=== PATIENT | female | born 1975 | race Caucasian/White ===

== ENCOUNTER 2020-03-29 10:00 | Outpatient (CLI) | payer SELFPAY ==
--- NOTE | 2020-03-29 10:06 | XR_ITS ---
WS: [id number] PROCEDURE: XR chest 2V* [id number] CLINICAL INFORMATION: DYSPNEA/COUGH COMPARISON: None. FINDINGS: Heart: Normal cardiac silhouette. Lungs: Lungs are clear. No consolidation or pleural fluid. Bones: Normal visualized bony structures. XR/XR chest 2V* [id number] IMPRESSION: Normal chest
== END 2020-03-29 10:01 | disposition home or self-care (01) ==
LOC: RADWPI 10:03
PROVIDERS: Family Provider Nurse Practitioner Family; PCP Nurse Practitioner Family; Visit Provider Nurse Practitioner Family
DX: R06.00 Dyspnea, unspecified (principal); R05 Cough
CPT/HCPCS: 71046

== ENCOUNTER 2020-04-03 15:21 | Emergency (ER) | payer SELFPAY ==
[2020-04-03 15:29] VITALS: BP 141/76; PULSE 110; RESP 14; TEMP 36.8; O2SAT 96; BMI 38.4
--- NOTE | 2020-04-03 15:45 | ECG_ITS ---
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 Measurements Intervals [place] Rate: 111 P: 53 MA: 150 QRS: 29 QRSD: 83 T: 44 QT: 305 QTc: 416 Interpretive Statements SINUS TACHYCARDIA LOW QRS VOLTAGE IN PRECORDIAL LEADS [QRS DEFLECTION < 1.0 mV IN CHEST LEADS] SEPTAL MYOCARDIAL INFARCTION [40+ ms Q WAVE IN V1/V2], PROBABLY OLD No previous ECG available for comparison Electronically Signed On 04-03-2020 20:43:54 CDT by Preeti Leigh M.D. [id number]
--- NOTE | 2020-04-03 15:47 | ED_ITS ---
HPI - Chest Pain General: Chief Complaint: Chest Pain Stated Complaint: cp,sob Time Seen by Provider: 04/03/20 15:45 History of Present Illness: HPI narrative: pt has no history of blood clots or DVT's. Patient describes having some underlying shortness of breath and dry cough due to her cigarette smoking. Patient's primary care physician is working on getting her set up with a wastewater engineer. MD complaint: chest pain and chest heaviness Pertinent past history: other (Past medical history of diabetes and hypertension. Patient is also 1/2 pack a day tobacco smoker.) Onset (ago): week(s) (Patient started getting these episodes approximately 2 weeks ago. She gets multiple episodes a day and they usually occur when she is up and active and improve when she stops and rests.) Timing of current episode: episodic (Episode occurred just prior to arrival to the ED and since getting to the ED it is subsiding) Prior episodes: Yes (Patient states that in the last 2 weeks she has had multiple episodes of chest pain, heaviness and shortness of breath that last for approximately 20 minutes. They are brought on when patient is up and active and rest helps episodes resolved.) Onset: during exertion (Occurs when patient is up and active.) Pain location: substernal Pain radiation: right shoulder Severity: mild Pain scale (0-10): 3 (Current pain is a 3 out of 10. She stated that this is not the worst episode of chest pain she has had in the past 2 weeks. She states she has had worse chest pain during other episodes previously.) Quality: aching and heaviness Relieving factors: rest Exacerbating factors: exertion and movement Associated symptoms: Reports dyspnea, palpitations and other (Patient says she gets lightheaded during episodes.); Deny abdominal pain, fever(s), nausea or vomiting Treatment prior to arrival: none Review of Systems Const: Denies: fever(s), chills or fatigue Eyes: Denies: change in vision or eye discomfort ENMT: Denies: throat pain, odynophagia, nasal discharge or nasal congestion Card: Reports: chest pain, palpitations and lightheadedness; Denies: edema, swelling of feet/ankles, dyspnea on exertion or orthopnea Resp: Reports: dyspnea; Denies: productive cough or non-productive cough GI: Denies: abdominal pain, nausea, vomiting, diarrhea, constipation or hematochezia : Denies: flank pain, dysuria or hematuria Musc: Denies: neck pain, back pain or extremity swelling Skin/Breast: Denies: rash or new lesions Neuro: Denies: headache(s), numbness in extremities or weakness in extremities Physical Exam Const: COMMON NORMALS: no acute distress, patient oriented x3 and alert GENERAL APPEARANCE: cooperative and comfortable HENMT: COMMON NORMALS: normocephalic HEAD & SCALP: normocephalic MOUTH: Normal oral and palatal mucosa present THROAT: posterior oropharynx normal and uvula midline Eye: COMMON NORMALS: Equal, round and reactive pupils present PUPIL: Yes Equal, round and reactive pupils present Neck/C-Spine: COMMON NORMALS: supple GENERAL: Yes normal visual inspection Resp: COMMON NORMALS: normal respiratory effort, No retractions, No use of accessory muscles and clear to auscultation bilaterally AUSCULTATION: clear to auscultation bilaterally Cardio: COMMON NORMALS: regular rhythm, S1 normal heart sound present, No gallops present (Cardio), No clicks present (Cardio), No murmurs present (Cardio) and Peripheral pulses 2+ throughout RATE: tachycardic RHYTHM: regular rhythm HEART SOUNDS: S1 normal heart sound present and Murmur heart sound present systolic Location: left sternal border Intensity: III/ Characteristics: blowing Timing: early PERIPHERAL PULSES: Peripheral pulses 2+ throughout GI: COMMON NORMALS: Normal to inspection, nondistended, normoactive bowel sounds present, Soft to palpation, non-tender and no masses PALPATION: Yes Soft to palpation : COMMON NORMALS: Yes no CVA tenderness BLADDER/KIDNEY EXAM: Yes no CVA tenderness Back/Pelvis: COMMON NORMALS: no CVA tenderness Extremity: COMMON NORMALS: normal to inspection and no pedal edema Neuro: COMMON NORMALS: patient oriented x3 and moves all extremities SENSORIUM/ORIENTATION: Yes alert Skin: COMMON NORMALS: no rashes or lesions noted GENERAL SKIN EXAM: no rashes or lesions noted and dry skin Course ED course: Heart score-4 I talked with patient about her getting an outpatient stress test and told her I will file the paperwork to get that ordered and they should be contacting her in the next several days to get the appointment set up. While I was in the room with patient she was having no chest pain or shortness of breath symptoms. Her heart rate was 100 bpm. Vital Signs: Vital signs: Vital Signs Temperature 98.2 F 04/03/20 15:29 Pulse Rate 104 H 04/03/20 17:37 Respiratory Rate 17 04/03/20 17:37 Blood Pressure 115/69 04/03/20 17:37 Pulse Oximetry 96 04/03/20 17:37 MDM - Chest Pain MDM Narrative: Medical decision making narrative: Patient is a 44-year-old female comes to the ED with chest pain for the last 2 weeks. Past medical history of hypertension, diabetes and is a half a pack a day smoker. Symptoms occurred upon exertion and resolved with rest. Patient's heart score was 4. EKG showed sinus tachycardia with no ST segment elevations or depression seen. Troponin negative. Chest x-ray showed no acute findings. Patient's symptoms had completely resolved while here in the ED. I discussed with patient her risk factors and gave her the option to stay for further testing or to discharge home and I will set up an outpatient stress test. Patient decided she would like to be discharged and I filled out the appropriate paperwork to get stress test set up with cardiology. Patient was told that if she starts having any reoccurring symptoms to come back to the ED for reevaluation. Patient understood and agreed with plan. Lab Data: Attestation: I reviewed the patient's lab results. Labs: Lab Results 04/03/20 04/03/20 04/03/20 Range/Units 15:55 15:55 15:55 WBC 15.4 H (4.0-10.0) 10^3/ uL RBC 5.26 (4.1-5.3) 10^6/u L Hgb 15.1 (11.5-15.3) g/dL Hct 46.5 (37.0-47.0) % MCV 88.4 (81-99) fL MCH 28.7 (28.0-34.0) pg MCHC 32.5 (30.0-36.0) g/dL RDW 13.6 (12.1-15.1) % Plt Count 355 (130-400) 10^3/c mm MPV 10.1 (7.4-10.4) fL Neut % (Auto) 61.4 % Lymph % (Auto) 27.6 % Dukes % (Auto) 7.5 % Eos % (Auto) 2.7 % Baso % (Auto) 0.5 % Neut # (Auto) 9.45 H (1.8-7.7) 10^3/u L Lymph # (Auto) 4.3 (0.8-4.8) 10^3/u L Dukes # (Auto) 1.2 H (0.2-0.9) 10^3/u L Eos # (Auto) 0.4 (0.0-0.8) 10^3/u L Baso # (Auto) 0.1 (0.0-0.1) 10^3/u L Nucleated RBC % (a uto) 0 % Nucleated RBCs # 0.0 /100WBC Sodium Cancelled Potassium Cancelled Chloride Cancelled Carbon Dioxide Cancelled Anion Gap Cancelled BUN Cancelled Creatinine Cancelled GFR Calculation Cancelled Glucose Cancelled Calculated Osmolal ity Cancelled Calcium Cancelled Total Bilirubin Cancelled AST Cancelled ALT Cancelled Alkaline Phosphata se Cancelled Troponin T Baselin e Cancelled Total Protein Cancelled Albumin Cancelled Globulin Cancelled HCG, Qual (Negative) Urine Color (Yellow) Urine Appearance (CLEAR) Urine pH (5-7) Ur Specific Gravit y (1.005-1.030) Urine Protein (Negative) Urine Glucose (UA) (Normal) Urine Ketones (Negative) Urine Blood (Negative) Urine Nitrate (Negative) Urine Bilirubin (NEGATIVE) Urine Urobilinogen (Negative) mg/dL Ur Leukocyte Ashley ase (Negative) Urine RBC (0-2) /hpf Urine WBC (0-5) /hpf Ur Squamous Epith Cells (0-5) Amorphous Sediment Urine Bacteria (NONE) Urine Mucus 04/03/20 04/03/20 04/03/20 Range/Units 15:55 16:17 16:30 WBC (4.0-10.0) 10^3/ uL RBC (4.1-5.3) 10^6/u L Hgb (11.5-15.3) g/dL Hct (37.0-47.0) % MCV (81-99) fL MCH (28.0-34.0) pg MCHC (30.0-36.0) g/dL RDW (12.1-15.1) % Plt Count (130-400) 10^3/c mm MPV (7.4-10.4) fL Neut % (Auto) % Lymph % (Auto) % Dukes % (Auto) % Eos % (Auto) % Baso % (Auto) % Neut # (Auto) (1.8-7.7) 10^3/u L Lymph # (Auto) (0.8-4.8) 10^3/u L Dukes # (Auto) (0.2-0.9) 10^3/u L Eos # (Auto) (0.0-0.8) 10^3/u L Baso # (Auto) (0.0-0.1) 10^3/u L Nucleated RBC % (a uto) % Nucleated RBCs # /100WBC Sodium 135 L Potassium 5.0 Chloride 102 Carbon Dioxide 19 L Anion Gap 19.0 BUN 16 Creatinine 0.7 GFR Calculation 90.5 Glucose 168 H Calculated Osmolal ity 280 L Calcium 10.0 Total Bilirubin 0.2 AST 13 ALT 17 Alkaline Phosphata se 44 Troponin T Baselin e Total Protein 7.6 Albumin 4.4 Globulin 3.2 HCG, Qual Negative (Negative) Urine Color Yellow (Yellow) Urine Appearance Hazy A (CLEAR) Urine pH 6 (5-7) Ur Specific Gravit y 1.015 (1.005-1.030) Urine Protein Neg (Negative) Urine Glucose (UA) Norm (Normal) Urine Ketones Negative (Negative) Urine Blood Neg (Negative) Urine Nitrate Negative (Negative) Urine Bilirubin Neg (NEGATIVE) Urine Urobilinogen Norm (Negative) mg/dL Ur Leukocyte Ashley ase Negative (Negative) Urine RBC None (0-2) /hpf Urine WBC None (0-5) /hpf Ur Squamous Epith Cells 0-4 H (0-5) Amorphous Sediment Not Reportable Urine Bacteria Trace (NONE) Urine Mucus Trace 04/03/20 Range/Units 16:30 WBC (4.0-10.0) 10^3/ uL RBC (4.1-5.3) 10^6/u L Hgb (11.5-15.3) g/dL Hct (37.0-47.0) % MCV (81-99) fL MCH (28.0-34.0) pg MCHC (30.0-36.0) g/dL RDW (12.1-15.1) % Plt Count (130-400) 10^3/c mm MPV (7.4-10.4) fL Neut % (Auto) % Lymph % (Auto) % Dukes % (Auto) % Eos % (Auto) % Baso % (Auto) % Neut # (Auto) (1.8-7.7) 10^3/u L Lymph # (Auto) (0.8-4.8) 10^3/u L Dukes # (Auto) (0.2-0.9) 10^3/u L Eos # (Auto) (0.0-0.8) 10^3/u L Baso # (Auto) (0.0-0.1) 10^3/u L Nucleated RBC % (a uto) % Nucleated RBCs # /100WBC Sodium Potassium Chloride Carbon Dioxide Anion Gap BUN Creatinine GFR Calculation Glucose Calculated Osmolal ity Calcium Total Bilirubin AST ALT Alkaline Phosphata se Troponin T Baselin e 6 Total Protein Albumin Globulin HCG, Qual (Negative) Urine Color (Yellow) Urine Appearance (CLEAR) Urine pH (5-7) Ur Specific Gravit y (1.005-1.030) Urine Protein (Negative) Urine Glucose (UA) (Normal) Urine Ketones (Negative) Urine Blood (Negative) Urine Nitrate (Negative) Urine Bilirubin (NEGATIVE) Urine Urobilinogen (Negative) mg/dL Ur Leukocyte Ashley ase (Negative) Urine RBC (0-2) /hpf Urine WBC (0-5) /hpf Ur Squamous Epith Cells (0-5) Amorphous Sediment Urine Bacteria (NONE) Urine Mucus Imaging Data^: CXR: Attestation: I personally reviewed and interpreted this imaging study as follows: Radiologist's impression: [address] [address] XRay Report Signed Patient: Varun Villatoro Unit #: [id number] : 1975 Age/Sex: 44 / F ADM Date: 04/03/20 Loc: ER Room/Bed: Attending Dr: Ordering Provider/Ordering MD: Andrews Chavez Date of Service: 04/03/20 Procedure(s): XR chest 1V portable [id number] Accession Number(s): [id number] Report Number: [id number] PROCEDURE INFORMATION: Exam: XR Chest, 1 View Exam date and time: 04/03/2020 3:47 PM Age: 44 years old Clinical indication: Type not specified; Patient HX: C/O chest pain; Chest heaviness. Dyspnea; Additional info: Cp TECHNIQUE: Imaging protocol: XR of the chest Views: 1 view. COMPARISON: CR XR chest 2V* [id number] 03/29/2020 10:46 AM FINDINGS: Lungs: There is unchanged hyperinflation and multiple tiny calcified granulomas. No consolidation. The vascularity is within normal limits. Pleural space: Unremarkable. No pleural effusion. No pneumothorax. Heart/Mediastinum: Unremarkable. No cardiomegaly. Bones/joints: No acute abnormality. XR/XR chest 1V portable [id number] IMPRESSION: No acute findings. Dictated By: Shelly Malcolm Signed By: Shelly Malcolm Signed Date/Time: 04/03/201626 DD/ 24 EKG Data^: EKG 1: Attestation: I personally reviewed and interpreted this EKG as follows: EKG interpretation date: 04/03/20 Interpretation: Sinus tachycardia, 111 bpm, no ST segment elevation or depression seen. P waves present. Discharge Plan Discharge Patient Disposition: Home Clinical Impression: Chest pain of unknown etiology Condition: Stable Prescriptions: No Action amlodipine 5 mg Tablet 5 mg PO DAILY RF: 0 lisinopril-hydrochlorothiazide 20-25 mg Tablet 1 tab PO DAILY RF: 0 metformin 1,000 mg Tablet 1,000 mg PO BID RF: 0 fenofibrate nanocrystallized 145 mg Tablet 145 mg PO DAILY RF: 0 Aleve 220 mg Tablet 220 mg PO BID PRN (Reason: Pain) RF: 0 Fish Oil 100-160-1,000 mg Capsule 1 cap PO DAILY RF: 0 Discharge Orders: Discharge Order (Routine); Ordered 04/03/20 Ordered By: Andrews Chavez Referrals: ISSA REGALADO FNP [Primary Care Provider] - Discharge Diet: Regular Discharge Activity: Increase activity as tolerated Patient Instructions: Chest Pain (ED) Activity Restrictions/Additional Instructions: Follow-up with medical provider as directed in 7 days. [facility] should be contacting you in the next several days to set up your cardiac stress test. Continue taking all home medications as prescribed. Return to the ER or your medical provider if condition worsens or any reoccurring chest pains. Please read and understand discharge instructions. If any questions, please ask. Discharge Date/Time: 04/03/20 17:36 Coding Level of Care Code ED Three Dimensional Map Modeler for Chg Fwd Exam Comprehensive
[2020-04-03 16:03] VITALS: BP 129/79; PULSE 112; RESP 13; O2SAT 97
[2020-04-03 16:03] LABS: Basophils # 0.1 10^3/uL (0.0-0.1); Basophils % 0.5 %; Eosinophils # 0.4 10^3/uL (0.0-0.8); Eosinophils % 2.7 %; Hematocrit 46.5 % (37.0-47.0); Hemoglobin 15.1 g/dL (11.5-15.3); Lymphocytes # 4.3 10^3/uL (0.8-4.8); Lymphocytes % 27.6 %; Mean Corpuscular HGB Conc 32.5 g/dL (30.0-36.0); Mean Corpuscular Hemoglobin 28.7 pg (28.0-34.0); Mean Corpuscular Volume 88.4 fL (81-99); Mean Platelet Volume 10.1 fL (7.4-10.4); Monocytes # 1.2 10^3/uL (0.2-0.9); Monocytes % 7.5 %; Neutrophils # 9.45 10^3/uL (1.8-7.7); Neutrophils % 61.4 %; Nucleated Red Blood Cells % 0 %; Platelet Count 355 10^3/cmm (130-400); Red Blood Count 5.26 10^6/uL (4.1-5.3); Red Cell Distribution Width 13.6 % (12.1-15.1); White Blood Count 15.4 10^3/uL (4.0-10.0)
[2020-04-03] MEDS: aspirin 81 mg Chew Tablet 324 MG PO (16:08)
[2020-04-03 16:19] LABS: HCG, Serum Qual Negative (Negative)
[2020-04-03 16:44] LABS: Add Urine Microscopic? YES; Bilirubin Urine Neg (NEGATIVE); Blood Urine Neg (Negative); Glucose Urine UA Norm (Normal); Ketones Urine Negative (Negative); Leukocyte Esterase Urine Negative (Negative); Nitrate Urine Negative (Negative); Protein Urine Neg (Negative); Specific Gravity, Urine 1.015 (1.005-1.030); Urine Appearance Hazy (CLEAR); Urine Color Yellow (Yellow); Urobilinogen Urine Norm (Negative); pH Urine 6 (5-7)
[2020-04-03 16:50] LABS: Add Urine Culture? No; Bacteria Urine TRACE; Mucus Urine TRACE; Squamous Epithelial Cell Urine 0-4 (0-5)
[2020-04-03 16:59] LABS: Alanine Aminotransferase 17 U/L (0-33); Albumin Level 4.4 g/dL (3.5-5.2); Alkaline Phosphatase 44 IU/L (35-105); Aspartate Amino Transferase 13 U/L (0-32); Blood Urea Nitrogen 16 mg/dL (6-20); Carbon Dioxide 19 mmol/L (22-29); Chloride 102 mmol/L (98-107); Globulin 3.2 g/dL (1.3-4.6); Glomerular Filtration Rate 90.5 mL/min (90-130); Glucose 168 mg/dL (65-115); Osmolality Calculated 280 mOsm/kg (285-295); Sodium 135 mmol/L (136-145); Total Bilirubin 0.2 mg/dL (0.15-1.2); Total Protein 7.6 g/dL (6.6-8.7)
[2020-04-03 17:00] LABS: Troponin(5th) Baseline 6 ng/L (0-10)
[2020-04-03 17:37] VITALS: BP 115/69; PULSE 104; RESP 17; O2SAT 96
--- NOTE | 2020-04-04 16:08 | PC.SOCIAL ---
Faxed order to [facility] for outpatient stress test with confirmation fax went through successfully. CM to follow up and see if scheduled.
--- NOTE | 2020-04-05 11:17 | PC.SOCIAL ---
Followed up with Rosanne at [facility] and they did receive the order for stress test. No further needs voiced.
--- NOTE | 2020-04-13 08:30 | DCPLANNER ---
Patient has a stress test scheduled for Thursday, April 14, 2020 at 10:00 for an out patient stress test. Centralized scheduling will call patient with appointment information.
--- NOTE | 2020-04-19 14:45 | DCPLANNER ---
Patient did attend appointment scheduled for 04.16.20 for a stress test.
== END 2020-04-03 17:36 | disposition home or self-care (01) ==
PROVIDERS: Emergency Provider Physician Assistant; PCP Nurse Practitioner Family
DX: R07.9 Chest pain, unspecified (principal)
CPT/HCPCS: 12345; 71045; 80053; 81001; 81003; 84484; 84703; 85025; 87040; 93005; 99283; 99284

== ENCOUNTER 2020-04-16 08:28 | Outpatient (CLI) | payer SELFPAY ==
[2020-04-16 09:10] VITALS: BMI 43.4
--- NOTE | 2020-04-16 09:10 | ECG_ITS ---
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 Interpretive Statements NAME OF STUDY: LEXISCAN SESTAMIBI STRESS TEST INDICATION: Chest Pain PROCEDURE: At the baseline, the EKG revealed sinus rhythm with a poor R wave progression. The baseline blood pressure was 127/67 mm Hg with a heart rate of 87 beats/min. Lexiscan was infused over a period of 20 seconds. A total of 0.4 milligrams of Lexiscan was infused. The stress phase was continued for a total of 5 minutes. Heart rate at the end of the stress phase was 104 with a blood pressure 130/67. The EKG at the peak infusion revealed no significant changes. Sestamibi was injected 20 seconds after the Lexiscan infusion. Blood pressure at the end of the recovery phase was 114/59 with a heart rate of 99 per minute. CONCLUSION: 1. No significant EKG changes with the LexiScan infusion 2. No LexiScan induced chest pain or cardiac arrhythmia 3. Normal blood pressure and heart rate response 4. Sestamibi/sestamibi perfusion scan pending; see separate report. Electronically Signed On 04-16-2020 13:10:15 CDT by Raysa Boyd M.D. [id number]
--- NOTE | 2020-04-16 09:11 | NMCV_ITS ---
NM jesús perf SPECT r/s* [id number] Varun Villatoro Age: 44 Gender: F : 1975 Exam Date: 04/16/2020 09:26 Ordering Phys: Andrews Chavez Technologist: KUNAL Caraballo Exam Location: [facility] Indications: CHEST PAIN STRESS TEST Please see separate stress test report in [facility] for full findings IMAGE PROTOCOL Rest/Stress 1 Lexiscan Day Radiopharmaceutical Dose (mCi) Administration Site Administered by Rest: Tc-99m 60 IV KUNAL Mota Sestamibi Stress:Tc-99m 30 IV KUNAL Mota Sestamibi Rest: 16-Apr-2020 60 Discovery 630 Stress: 16-Apr-2020 30 Discovery 630 0.4mg Lexiscan. Images obtained in supine and prone position. SPECT RESULTS Technical Quality: Good Raw Data Analysis: Breast attenuation Image Corrections: No attenuation or motion correction applied Summed Stress Score: 3 Summed Rest Score: 0 Summed Difference Score: 3 PERFUSION FINDINGS Small area of mild reversibility noted in basal inferolateral wall suggestive of artifact. FUNCTIONAL RESULTS (calculated via Gated SPECT) Stress Image LV EF (%): 72 Stress EDV (mL):60 TID: 1.3 Stress ESV (mL):17 Rest Image LV EF (%): 72 FUNCTIONAL FINDINGS: There is normal left ventricular systolic function. IMPRESSIONS Myocardial perfusion imaging is not suggestive of obstructive coronary artery disease.TID ratio is elevated 1.3 which could be secondary left-ventricular hypertrophy/subendocardial ischemia in the absence of other parameters. EKG segment will be documented separately. Preeti Leigh MD (Electronically Signed) Final Date: 16 April 2020 16:58 S
--- NOTE | 2020-04-16 10:25 | SUR.PREOP ---
Patient reports no pain or discomfort prior to the start of the procedure.
[2020-04-16] MEDS: regadenoson 0.4 Mg/5 ml Syringe IVP (10:27)
[2020-04-16 10:52] VITALS: BP 129/62; PULSE 99
== END 2020-04-16 08:29 | disposition home or self-care (01) ==
LOC: RAD 08:35 → CDL 08:57
PROVIDERS: PCP Nurse Practitioner Family; Visit Provider Physician Assistant
DX: R07.9 Chest pain, unspecified (principal); I25.9 Chronic ischemic heart disease, unspecified
CPT/HCPCS: 78452; 93017; A9500; J2785

== ENCOUNTER 2022-01-27 11:16 | Outpatient (CLI) | payer SELFPAY ==
--- NOTE | 2022-01-27 11:33 | XR_ITS ---
WS: [id number] Exam: XR knee RT 4V [id number] Date/Time of Exam: 01/27/2022 11:33 AM Reason For Exam: R KNEE PAIN No fracture or dislocation noted. Articular relationships are intact. No joint effusion. XR/XR knee RT 4V [id number] Impression: Normal right knee Kellgren-Adi Classification: 0
--- NOTE | 2022-01-27 11:33 | XR_ITS ---
WS: [id number] Exam: XR knee LT 4V [id number] Date/Time of Exam: 01/27/2022 11:33 AM Reason For Exam: L KNEE PAIN No fracture or dislocation noted. Articular relationships are intact. No joint effusion. XR/XR knee LT 4V [id number] Impression: Normal left knee Kellgren-Adi Classification: 0
== END 2022-01-27 11:17 | disposition home or self-care (01) ==
PROVIDERS: PCP Nurse Practitioner Family; Visit Provider Nurse Practitioner Family
DX: M25.562 Pain in left knee (principal); M25.561 Pain in right knee
CPT/HCPCS: 73564

== ENCOUNTER 2022-09-22 15:04 | Observation (INO) | payer MEDICAID, SELFPAY ==
[2022-09-22 15:06] VITALS: BP 158/95; PULSE 89; RESP 18; TEMP 36.4; O2SAT 99
--- NOTE | 2022-09-22 15:21 | ECG_ITS ---
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 Measurements Intervals [place] Rate: 85 P: 49 [place]: 154 QRS: -9 QRSD: 100 T: 57 QT: 375 QTc: 447 Interpretive Statements SINUS RHYTHM LOW QRS VOLTAGE IN PRECORDIAL LEADS [QRS DEFLECTION < 1.0 mV IN CHEST LEADS] Compared to ECG 04/03/2020 15:39:20 Sinus tachycardia no longer present Myocardial infarct finding no longer present Electronically Signed On 09-22-2022 18:42:02 CHAIRMAN & CHIEF EXECUTIVE OFFICER by Frederick Sharma M.D. [id number]
--- NOTE | 2022-09-22 15:23 | XR_ITS ---
WS: [id number] Portable AP upright chest, 09/22/2022 Clinical Data: dyspnea/cough Comparison: Portable chest, 04/03/2020 Findings: No nodules, masses or effusions are seen. The heart is normal. The pulmonary vascularity is not increased. No pneumonia or pneumothorax is seen. XR/XR chest 1V portable [id number] Impression: Negative chest.
[2022-09-22 15:42] LABS: Basophils # 0.1 10^3/uL (0.0-0.1); Basophils % 0.9 %; Eosinophils # 0.4 10^3/uL (0.0-0.8); Eosinophils % 3.2 %; Hemoglobin 16.6 g/dL (11.5-15.3); Lymphocytes # 4.7 10^3/uL (0.8-4.8); Lymphocytes % 35.2 %; Mean Corpuscular HGB Conc 33.2 g/dL (30.0-36.0); Mean Corpuscular Volume 87.3 fl (81-99); Mean Platelet Volume 8.9 fL (7.4-10.4); Monocytes # 1.1 10^3/uL (0.2-0.9); Monocytes % 8.5 %; Neutrophils # 6.94 10^3/uL (1.8-7.7); Nucleated Red Blood Cells % 0 %; Platelet Count 421 10^3/cmm (130-400); Red Blood Count 5.73 10^6/uL (4.1-5.3); Red Cell Distribution Width 13.8 % (12.1-15.1); White Blood Count 13.4 10^3/uL (4.0-10.0)
[2022-09-22] MEDS: aspirin 81 mg Chew Tablet 324 MG PO (16:01)
[2022-09-22 16:05] LABS: Troponin(5th) Baseline 18 ng/L (0-10)
[2022-09-22 16:06] LABS: Alanine Aminotransferase 27 U/L (0-33); Albumin Level 4.6 g/dL (3.5-5.2); Alkaline Phosphatase 55 U/L (35-105); Anion Gap 19.8 (5-19); Aspartate Amino Transferase 20 U/L (0-32); Blood Urea Nitrogen 17 mg/dL (6-20); Calcium 9.6 mg/dL (8.5-10.5); Carbon Dioxide 21 mmol/L (22-29); Chloride 102 mmol/L (98-107); Globulin 2.8 g/dL (1.3-4.6); Glomerular Filtration Rate 131.7 mL/min (90-130); Glucose 159 mg/dL (65-115); Osmolality Calculated 293 mOsm/kg (285-295); Potassium 3.8 mmol/L (3.5-5.1); Sodium 139 mmol/L (136-145); Total Bilirubin 0.2 mg/dL (0.15-1.2); Total Protein 7.4 g/dL (6.6-8.7)
--- NOTE | 2022-09-22 16:16 | ED_ITS ---
HPI - Chest Pain General: Chief Complaint: Chest Pain Stated Complaint: Chest Pain Time Seen by Provider: 09/22/22 15:22 Source: patient History of Present Illness: This 47-year-old female presents to the ER with right shoulder pain that has been going on for well over a year. Pain is intermittent and usually aggravated by activity. She was seen in this ER about a year ago during which an extensive cardiac work-up was done because of this pain. Stress test at that time was unremarkable. She recalls how her primary care physician had wanted to do an MRI of the shoulder but because she did not have insurance, it was not done. Patient notes that she moved furniture on Thursday (a week ago) following which the pain started again. Abducting the shoulder or moving the shoulder backwards tends to cause more pain. She has no fever, cough, shortness of breath or any other pertinent symptoms. Review of Systems Const: Denies: chills, body aches or change in appetite Eyes: Denies: change in vision or eye discharge ENMT: Denies: throat pain, dental pain or nasal discharge Card: Denies: chest pain or lightheadedness : Denies: dysuria Musc: Reports: joint pain (Right shoulder); Denies: neck pain or back pain Neuro: Denies: headache(s) or weakness in extremities Psych: Denies: depression Thong/Lymph: Denies: easy bruising All/Imm: Denies: urticaria, tongue swelling or facial swelling PFSH ED PFSH: Medical History (Updated 09/22/22 @ 19:50 by Juan Carlos Greene MD) History of essential hypertension History of hyperlipidemia History of type 2 diabetes mellitus Surgical History (Updated 09/22/22 @ 19:45 by Juan Carlos Greene MD) No pertinent past surgical history Family History (Updated 09/22/22 @ 19:46 by Juan Carlos Greene MD) Father CAD (coronary artery disease) Social History (Updated 09/22/22 @ 19:45 by Juan Carlos Greene MD) Smoking and tobacco status: current every day smoker Alcohol intake: never Substance/Drug Use: never Physical Exam Const: COMMON NORMALS: no acute distress, patient oriented x3, no limitations and alert HENMT: COMMON NORMALS: normocephalic HEAD & SCALP: normocephalic Eye: COMMON NORMALS: EOMs intact bilaterally Neck/C-Spine: COMMON NORMALS: full ROM and supple Chest: COMMONS NORMALS: normal inspection of the chest Resp: COMMON NORMALS: normal respiratory effort, No retractions, No use of accessory muscles and clear to auscultation bilaterally AUSCULTATION: clear to auscultation bilaterally Cardio: COMMON NORMALS: regular rate, regular rhythm and No murmurs present (Cardio) RATE: regular rate RHYTHM: regular rhythm GI: COMMON NORMALS: Normal to inspection, nondistended, normoactive bowel sounds present and non-tender : COMMON NORMALS: Yes no CVA tenderness BLADDER/KIDNEY EXAM: Yes no CVA tenderness Back/Pelvis: COMMON NORMALS: no CVA tenderness and no thoracic nor lumbar tenderness Extremity: GENERAL: Yes normal exam except as noted RIGHT UPPER EXTREMITY: Yes shoulder joint (Good range of right shoulder movement though with pain.) Right shoulder: Yes Right shoulder joint ROM exam (Good) Neuro: COMMON NORMALS: patient oriented x3 and no focal motor deficits SENSORIUM/ORIENTATION: Yes alert Psych: COMMON NORMALS: mental status grossly normal and cooperative Course Vital Signs: Vital signs: Vital Signs Temperature 97.5 F L 09/22/22 17:16 Pulse Rate 87 09/22/22 19:15 Respiratory Rate 14 09/22/22 19:15 Blood Pressure 116/63 09/22/22 19:15 Pulse Oximetry 94 09/22/22 19:15 Oxygen Delivery Me thod 09/22/22 19:15 MDM - Chest Pain Medical Decision Making Medical decision making: History as above. Patient's pain is mainly located in the right shoulder. Occasionally the pain from the shoulder radiates into the chest. She had a cardiac work-up about a year ago that was negative. Patient has no active chest pain at this time. However her initial troponin is 18. 2-hour troponin is 33 with a delta of 15. So, she will be admitted for further evaluation. Case discussed with Dr. Greene who accepted patient for admission. Lab Data 09/22/22 15:30 09/22/22 15:30 Radiology Impressions Chest X-Ray 09/22/22 15:23 Impression: Negative chest. Laboratory Results WBC 13.4 10^3/uL (4.0-10.0) H 09/22/22 15:30 RBC 5.73 10^6/uL (4.1-5.3) H 09/22/22 15:30 Hgb 16.6 g/dL (11.5-15.3) H 09/22/22 15:30 Hct 50.0 % (37.0-47.0) H 09/22/22 15:30 MCV 87.3 fl (81-99) 09/22/22 15:30 MCH 29.0 pg (28.0-34.0) 09/22/22 15:30 MCHC 33.2 g/dL (30.0-36.0) 09/22/22 15:30 RDW 13.8 % (12.1-15.1) 09/22/22 15:30 Plt Count 421 10^3/cmm (130-400) H 09/22/22 15:30 MPV 8.9 fL (7.4-10.4) 09/22/22 15:30 Neut % (Auto) 52.0 % 09/22/22:30 Lymph % (Auto) 35.2 % 09/22/22 15:30 [place] % (Auto) 8.5 % 09/22/22 15:30 Eos % (Auto) 3.2 % 09/22/22 15:30 Baso % (Auto) 0.9 % 09/22/22:30 Neut # (Auto) 6.94 10^3/uL (1.8-7.7) 09/22/22 15:30 Lymph # (Auto) 4.7 10^3/uL (0.8-4.8) 09/22/22 15:30 [place] # (Auto) 1.1 10^3/uL (0.2-0.9) H 09/22/22 15:30 Eos # (Auto) 0.4 10^3/uL (0.0-0.8) 09/22/22 15:30 Baso # (Auto) 0.1 10^3/uL (0.0-0.1) 09/22/22 15:30 Nucleated RBC % (auto) 0 % 09/22/22:30 Nucleated RBCs # 0.0 /100WBC 09/22/22 15:30 Sodium 139 mmol/L (136-145) 09/22/22 15:30 Potassium 3.8 mmol/L (3.5-5.1) 09/22/22 15:30 Chloride 102 mmol/L (98-107) 09/22/22 15:30 Carbon Dioxide 21 mmol/L (22-29) L 09/22/22 15:30 Anion Gap 19.8 (5-19) H 09/22/22 15:30 BUN 17 mg/dL (6-20) 09/22/22 15:30 Creatinine 0.5 mg/dL (0.5-0.9) 09/22/22 15:30 GFR Calculation 131.7 mL/min (90-130) H 09/22/22 15:30 Glucose 159 mg/dL (65-115) H 09/22/22 15:30 POC Glucose 141 mg/dL (70-110) H 09/22/22 17:35 Calculated Osmolality 293 mOsm/kg (285-295) 09/22/22 15:30 Calcium 9.6 mg/dL (8.5-10.5) 09/22/22 15:30 Total Bilirubin 0.2 mg/dL (0.15-1.2) 09/22/22 15:30 AST 20 U/L (0-32) 09/22/22 15:30 ALT 27 U/L (0-33) 09/22/22 15:30 Alkaline Phosphatase 55 U/L (35-105) 09/22/22 15:30 Troponin T Baseline 18 ng/L (0-10) H 09/22/22 15:30 Troponin T 120 Minute 33.01 ng/L (0-10) H 09/22/22 17:30 Delta Troponin T 15.01 ABS# (0-10) H* 09/22/22 17:30 C-Reactive Protein 8.0 mg/L (0.0-4.9) H 09/22/22 17:30 NT-Pro-B Natriuret Pep 124 pg/mL (0-125) 09/22/22 17:30 Total Protein 7.4 g/dL (6.6-8.7) 09/22/22 15:30 Albumin 4.6 g/dL (3.5-5.2) 09/22/22 15:30 Globulin 2.8 g/dL (1.3-4.6) 09/22/22 15:30 EKG Data EKG 1: Interpretation: Sinus rhythm, rate of 75, normal axis, normal intervals, no STEMI. Discharge Plan Discharge Patient Disposition: Placed in Observation Admit Provider: Juan Carlos Greene Clinical Impression: Elevated troponin level, Right shoulder pain Coding Level of Care Code ED Mainframe Systems Administrator for Chg Fwd Exam Comprehensive
[2022-09-22 17:16] VITALS: BP 145/83; PULSE 81; RESP 17; TEMP 36.4; O2SAT 98
--- NOTE | 2022-09-22 17:16 | PC.NURSE ---
updated pt on plan of care
[2022-09-22 17:39] LABS: Glucose Point of Care 141 mg/dL (70-110)
[2022-09-22 17:59] LABS: Troponin 5 2HR 33.01 ng/L (0-10)
[2022-09-22 18:07] LABS: Troponin 5 2HR Delta 15.01 ABS# (0-10)
--- NOTE | 2022-09-22 18:34 | ECG_ITS ---
[facility] Test Date: 2022-09-22 Pat Name: Varun Villatoro Department: Room: Gender: Female Benefits Clerk: : 1975 Requested By: Magdi Barreto Order Number: [id number] Alcides MD: Frederick Sharma M.D. Measurements Intervals [place] Rate: 75 P: 56 NC: 172 QRS: 3 QRSD: 96 T: 20 QT: 389 QTc: 435 Interpretive Statements SINUS RHYTHM SEPTAL MYOCARDIAL INFARCTION , OF INDETERMINATE AGE [40+ ms Q WAVE IN V1/V2] Compared to ECG 09/22/2022 15:21:44 Myocardial infarct finding now present Electronically Signed On 09-22-2022 18:46:00 CAR SHAKEOUT OPERATOR by Frederick Sharma M.D. [email or web address] [email or web address] county hospitalDistalMotionmemorial health system [facility].[employer] (EPS)/store/[id number]
[2022-09-22 19:15] VITALS: BP 116/63; PULSE 87; RESP 14; O2SAT 94
--- NOTE | 2022-09-22 19:41 | XRR_ITS ---
PROCEDURE INFORMATION: Exam: XR Right Shoulder Exam date and time: 09/22/2022 7:44 PM Age: 47 years old Clinical indication: Pain; Shoulder; Right TECHNIQUE: Imaging protocol: Radiologic exam of the Right shoulder. Views: 2 or more views. COMPARISON: CR XR chest 1V portable [id number] 09/22/2022 3:33 PM FINDINGS: Bones/joints: The glenohumeral and acromioclavicular joints are normally aligned. No acute fracture is seen. Lungs: Visualized portions of the chest are normal. Soft tissues: Unremarkable. XR/XR shoulder RT min 2V* [id number] IMPRESSION: No evidence of acute fracture or dislocation.
--- NOTE | 2022-09-22 19:41 | USCV_ITS ---
Varun Villatoro Age: 47 Gender: F : 1975 Exam Date: 09/22/2022 20:42 Ordering Phys: Juan Carlos Greene MD Technologist: JAREN Exam Location: [facility] [place] Indication: chronic RIGHT shoulder pain for several years. No history of cardiac intervention per patient. BP: 116 / 63 HR: 81 Rhythm: Sinus Technical Quality: Adequate MEASUREMENTS (Male / Female) Normal Values 2D ECHO LV Diastolic Diameter PLAX 3.3 cm 4.2 - 5.9 / 3.9 - 5.3 cm LV Systolic Diameter PLAX 2.0 cm IVS Diastolic Thickness 1.4 cm 0.6 - 1.0 / 0.6 - 0.9 cm IVS Systolic Thickness 2.2 cm LVPW Diastolic Thickness 1.4 cm 0.6 - 1.0 / 0.6 - 0.9 cm LVPW Systolic Thickness 0.9 cm LVOT Diameter 2.1 cm LV Ejection Fraction 2D Teich 72.7 % LV Ejection Fraction MOD 2C 71.9 % LV Ejection Fraction 2C AL 73.1 % LA Diameter 3.6 cm LA Width 3.7 cm LA Height 4.4 cm RA Width 2.4 cm RA Height 3.5 cm Aorta at Sinotubular Diameter 2.8 cm IVC Diameter 1.1 cm M-MODE Aortic Annulus Diameter 2.7 cm LA Ao Ratio MM 1.3 MV E Point Septal Separation 0.2 cm DOPPLER AV Peak Velocity 181.0 cm/s LVOT Peak Velocity 151.0 cm/s AV Area Cont Eq vti 3.1 cm squared AV Area Cont Eq pk 2.8 cm squared MV Area PHT 3.5 cm squared Mitral E to A Ratio 0.8 MV E' Velocity 38.0 cm/s Mitral E to MV E' Ratio 12.9 Mitral E to LV E' Lateral Ratio 12.9 Mitral E to LV E' Septal Ratio 13.1 TV Peak E Velocity 55.0 cm/s PV Peak Velocity 113.0 cm/s RV Acceleration Time 0.1 s RV Ejection Time 0.3 s RV AcT/ET 0.2 FINDINGS Left Ventricle Left ventricle is normal in size. LV systolic function is normal with EF 55 to 60%. No regional wall motion abnormalities are seen but apical wall is not well visualized. Grade 1 diastolic dysfunction Right Ventricle Normal in size and function Right Atrium Normal in size Left Atrium Normal in size Mitral Valve Structurally normal mitral valve. Aortic Valve Structurally normal aortic valve. No significant stenosis or regurgitation. Tricuspid Valve Mild tricuspid regurgitation. Insufficient TR jet to calculate RVSP. Pulmonic Valve Not well-visualized Pericardium Normal Aorta Normal in size IVC Not well visualized. CONCLUSIONS LV systolic function is normal with EF 55 to 60%. Grade 1 diastolic dysfunction Mild tricuspid regurgitation No comparison studies are available Frederick Sharma MD (Electronically Signed) Final Date: 23 September 2022 12:24 S
--- NOTE | 2022-09-22 19:41 | PM.HP ---
Providers/Chief Complaint Primary Care Provider: Myriam Bridges Chief Complaint: Chest Pain History of Present Illness Varun Villatoro is a 47 year old female with a past medical history of [id number]-gkosynggd type 2 diabetes mellitus, hypertension, hyperlipidemia who presents [facility] for right shoulder pain, right-sided chest pain. Patient tells me that she has a history of chronic right shoulder pain, chronic low back pain she is down however had a full evaluation as she had lost insurance sometime ago. She tells me that recently she was moving furniture, and she started to notice worsening right shoulder pain. She tells me that today she started to notice severe right-sided shoulder neck pain, that radiated to the chest, and also resting chest pain. She tells me that the pain does not feel like a spasm its not sharp pain but almost like a pressure or squeezing like pain. Lightheadedness, no dizziness, no diaphoresis, does have right shoulder pain with range of motion. Hospitalist team was called for admission as patient was troponin went from 18-33 with a delta of 15 she had 1 episode of discomfort in her shoulder and her chest in the emergency room, currently chest pain-free alert oriented x3, following all commands, chills, no history of chest trauma Review of Systems Const: Denies: fever(s) or chills Eyes: Denies: change in vision Card: Reports: chest pain Resp: Denies: dyspnea GI: Denies: abdominal pain or nausea : Denies: flank pain or difficulty voiding Musc: Reports: joint pain and limited range of motion Skin/Breast: Denies: rash Neuro: Denies: headache(s), numbness in extremities or weakness in extremities Psych: Denies: anxiety Endo: Denies: polyuria or polydipsia Medications/Allergies Home Medications Medication Instructions Recorded Confirmed Last Taken Type amlodipine 5 mg tablet 5 mg PO DAILY 04/03/20 09/22/22 09/21/22 History fenofibrate nanocrystallized 145 145 mg PO DAILY 04/03/20 09/22/22 09/21/22 History mg tablet metformin 1,000 mg tablet 1,000 mg PO BID 04/03/20 09/22/22 09/21/22 History naproxen sodium 220 mg tablet 220 mg PO BID PRN Pain 04/03/20 09/22/22 Unknown History (Aleve) omega 3-nmz-zyz-fish oil 100 1 cap PO DAILY 04/03/20 09/22/22 09/21/22 History mg-160 mg-1,000 mg capsule (Fish Oil) aspirin 81 mg chewable tablet 81 mg PO DAILY 09/22/22 09/22/22 09/21/22 History atorvastatin 20 mg tablet 20 mg PO DAILY 09/22/22 09/22/22 09/21/22 History losartan 50 mg-hydrochlorothiazide 1 tab PO DAILY 09/22/22 09/22/22 09/21/22 History 12.5 mg tablet propranolol 20 mg tablet 20 mg PO DAILY 09/22/22 09/22/22 09/22/22 History Allergies Allergy/AdvReac Type Severity Reaction Status Date / Time No Known Allergies Allergy Verified 04/16/20 10:57 PFSH Acute PFSH: Medical History (Updated 09/22/22 @ 19:50 by Juan Carlos Greene MD) History of essential hypertension History of hyperlipidemia History of type 2 diabetes mellitus Surgical History (Updated 09/22/22 @ 19:45 by Juan Carlos Greene MD) No pertinent past surgical history Family History (Updated 09/22/22 @ 19:45 by Juan Carlos Greene MD) Father CAD (coronary artery disease) Social History (Updated 09/22/22 @ 19:45 by Juan Carlos Greene MD) Smoking and tobacco status: current every day smoker Alcohol intake: never Substance/Drug Use: never Vitals/I&O/Wt Last Vital Signs Temp 97.5 F L 09/22/22 17:16 Pulse 87 09/22/22 19:15 Resp 14 09/22/22 19:15 BP 116/63 09/22/22 19:15 Pulse Ox 94 09/22/22 19:15 O2 Del Method 09/22/22 19:15 Weight last 48 hrs Weight 85.729 kg Physical Exam Const: COMMON NORMALS: no acute distress and patient oriented x3 HENMT: COMMON NORMALS: normocephalic HEAD & SCALP: normocephalic Eye: COMMON NORMALS: Equal, round and reactive pupils present and EOMs intact bilaterally Neck/C-Spine: COMMON NORMALS: full ROM, no lymphadenopathy and no JVD Resp: COMMON NORMALS: normal respiratory effort, No retractions, No use of accessory muscles and clear to auscultation bilaterally AUSCULTATION: clear to auscultation bilaterally Cardio: COMMON NORMALS: no JVD, regular rate, regular rhythm, S1 normal heart sound present and S2 normal heart sound present RATE: regular rate RHYTHM: regular rhythm HEART SOUNDS: S1 normal heart sound present and S2 normal heart sound present GI: COMMON NORMALS: Normal to inspection, nondistended, normoactive bowel sounds present, Soft to palpation and non-tender PALPATION: Yes Soft to palpation and Yes No hepatosplenomegaly present Extremity: COMMON NORMALS: no calf tenderness and no pedal edema NARRATIVE EXTREMITY EXAM: Right shoulder examination, some AC joint tenderness, pain above 90 degree arc, pain with active and passive range of motion, range of motion causes pain to radiate to the chest Neuro: COMMON NORMALS: patient oriented x3, CN's II-XII intact bilaterally, moves all extremities and no focal motor deficits Psych: COMMON NORMALS: mental status grossly normal Data 09/22/22 15:30 09/22/22 15:30 A&P Assessment and plan (1) NSTEMI (non-ST elevated myocardial infarction): (2) Right shoulder pain: (3) Elevated troponin level: (4) History of type 2 diabetes mellitus: (5) History of hyperlipidemia: (6) History of essential hypertension: (7) Obesity: Plan NSTEMI -Symptoms sound atypical in nature sound more like right shoulder pain -However her 120-minute troponin 33 with a delta of 15, Q waves in anterior leads -She has family history of CAD father in her 40s required open heart surgery -stress in 2019 showed Myocardial perfusion imaging is not suggestive of obstructive coronary artery ?disease.TID ratio is elevated 1.3 which could be secondary left-ventricular ?hypertrophy/subendocardial ischemia in the absence of other parameters.? EKG ?segment will be documented separately. -Plan -Admit to CSU -Telemetry monitoring -Serial EKGs, serial troponins, telemetry monitoring -Watch troponin trend if it continues to go up we will proceed with stress testing -Cardiac echo -Aspirin, statin, Coreg -Nitro as needed for chest pain -Right shoulder x-ray -Morphine as needed for pain -Type 2 diabetes mellitus, low-dose sliding -Full code -Lovenox for DVT prophylaxis Attestations Medical Necessity Statement*: Patient requires hospitalization outpatient with observation for chest pain Coding Level of Care Code Acute Code for Chg Fwd Diagnoses NSTEMI (non-ST elevated myocardial infarction) I21.4 Right shoulder pain M25.511 Elevated troponin level R77.8 History of type 2 diabetes mellitus Z86.39 History of hyperlipidemia Z86.39 History of essential hypertension Z86.79 Obesity E66.9
[2022-09-22 20:16] LABS: NT Pro B Type Natriuretic Pept 124 pg/mL (0-125)
--- NOTE | 2022-09-22 21:23 | ECG_ITS ---
[facility] Test Date: 2022-09-23 Pat Name: Varun Villatoro Department: Room: 259 Gender: Female Corporate Tutor: : 1975 Requested By: Mgadi Barreto Order Number: [id number] Alcides MD: Frederick Sharma M.D. Measurements Intervals [place] Rate: 64 P: 52 [place]: 172 QRS: 1 QRSD: 101 T: -1 QT: 409 QTc: 424 Interpretive Statements SINUS RHYTHM SEPTAL MYOCARDIAL INFARCTION , PROBABLY OLD [40+ ms Q WAVE IN V1/V2] Compared to ECG 09/22/2022 18:34:57 No significant changes Electronically Signed On 09-23-2022 14:47:59 AGENCY SERVICE COORDINATOR by Frederick Sharma M.D. [email or web address] Corporationtrihealth [id number]
--- NOTE | 2022-09-22 21:50 | PC.NURSE ---
Patient asked to speak to nurse and stated that she really wanted to go downstairs to smoke a cigarette. Patient was educated about safety risks regarding stepping outside to smoke and that it is against policy of hospital. Patient stated that she hasn't had a smoke since 2pm today, and when offered to speak to the on-call doctor regarding a possible prescription for nicotine patch or nicorette, patient declined, claiming that they hurt her head. Patient then stated Can I just leave? Patient was educated regarding leaving AMA, that it is not encouraged, and then patient stated Oh I'm not going to leave, I just want to smoke. Patient also stated concern regarding her health insurance and getting billed. Patient then requested to be moved to another room because the patient residing in the bed beside her is moaning and groaning. Arrangements being made to move residing patient to another room. Dr Greene informed of patient threatening to leave AMA. Dr Greene instructed nurse to educate patient that there is a risk of if she leaves AMA. Patient educated about the risks of leaving AMA, and patient verbalized understanding. Nurse also instructed patient that if patient wants to leave AMA, to not sneak off the unit, but to clearly verbalize the desire to leave and to sign papers in order to leave AMA. Elopement band placed on patient, and MANAGER SUSTAINABILITY instructed to watch patient in order to make sure patient does not sneak off unit. Patient resting in bed at this time with no further questions.
[2022-09-22 21:58] VITALS: BMI 34.5
[2022-09-22 22:12] LABS: Troponin 5 6HR 52.85 ng/L (0-10)
[2022-09-22 22:44] LABS: Troponin 5 6HR Delta 34.85 ng/L (0-12)
[2022-09-22 23:36] VITALS: BP 148/74; PULSE 74; PULSE 88; RESP 17; TEMP 36.7; O2SAT 97
--- NOTE | 2022-09-22 23:36 | ECG_ITS ---
[facility] Test Date: 2022-09-23 Pat Name: Varun Villatoro Department: Room: 259 Gender: Female Seismograph Recorder: : 1975 Requested By: Juan Carlos Greene Order Number: [id number] Alcides MD: Frederick Sharma M.D. Interpretive Statements NAME OF STUDY: LEXISCAN SESTAMIBI STRESS TEST INDICATION: [Chest Pain] Procedure: At the baseline, the blood pressure was 135/66 mmHg with a heart rate of 76 bpm. The electrocardiogram showed normal sinus rhythm, normal axis with normal ST and T's. The Lexiscan was infused over a period of 20 seconds. A total of 0.4 mg of Lexiscan was infused. The stress phase was continued for a total of 5 minutes. Heart rate was at the end of stress phase was 91 bpm and a blood pressure of 132/59 mmHg. The EKG at the peak infusion revealed normal sinus rhythm with no significant ST-T wave changes. Sestamibi was injected 20 seconds after the Lexiscan infusion. Blood pressure at the end of recovery phase was 130/63 mmHg with a heart rate of 92 bpm. Conclusion: 1. Normal EKG response to Lexiscan infusion 2. No Lexiscan induced chest pain or cardiac arrhythmia. 3. Normal blood pressure and heart rate response. 4. Sestamibi/sestamibi perfusion scan pending; see separate report. Electronically Signed On 10-05-2022 19:56:11 FORMING PRESS OPERATOR by Frederick Sharma M.D. [id number]
[2022-09-22] MEDS: carvedilol 3.125 mg Tablet PO (23:52)
[2022-09-23] VITALS: BP 151/81; PULSE 76; RESP 17; TEMP 36.4; O2SAT 97
[2022-09-23 00:06] LABS: Chol HDL Ratio 6.97 mg/dL (0.0-4.40); Cholesterol 209 mg/dL (0-200); HDL Cholesterol 30 mg/dL (60-100); LDL Cholesterol Calculated 125 mg/dL (50-129); LDL HDL Ratio 4.17 RATIO (0.00-3.22); Thyroid Stimulating Hormone 1.04 uIU/mL (0.27-4.20); Triglycerides 268 mg/dL (0-150)
[2022-09-23 01:02] LABS: Estmated Average Glucose 148; Hemoglobin A1C 6.8 % (4.0-6.0)
[2022-09-23 01:37] VITALS: O2SAT 93
[2022-09-23 03:45] VITALS: BP 110/60; PULSE 66; RESP 15; TEMP 36.5; O2SAT 97
[2022-09-23 04:59] LABS: Basophils # 0.1 10^3/uL (0.0-0.1); Basophils % 0.6 %; Eosinophils # 0.4 10^3/uL (0.0-0.8); Eosinophils % 3.4 %; Hematocrit 47.9 % (37.0-47.0); Hemoglobin 15.6 g/dL (11.5-15.3); Lymphocytes # 5.2 10^3/uL (0.8-4.8); Lymphocytes % 41.1 %; Mean Corpuscular HGB Conc 32.6 g/dL (30.0-36.0); Mean Corpuscular Hemoglobin 29.1 pg (28.0-34.0); Mean Corpuscular Volume 89.2 fl (81-99); Neutrophils # 5.93 10^3/uL (1.8-7.7); Neutrophils % 46.7 %; Nucleated Red Blood Cells % 0 %; Platelet Count 333 10^3/cmm (130-400); Red Blood Count 5.37 10^6/uL (4.1-5.3); White Blood Count 12.7 10^3/uL (4.0-10.0)
[2022-09-23 05:23] LABS: Anion Gap 14.9 (5-19); Blood Urea Nitrogen 17 mg/dL (6-20); Calcium 8.9 mg/dL (8.5-10.5); Carbon Dioxide 24 mmol/L (22-29); Chloride 104 mmol/L (98-107); Glomerular Filtration Rate 131.7 mL/min (90-130); Glucose 115 mg/dL (65-115); Magnesium 2.1 mg/dL (1.7-2.3); Osmolality Calculated 290 mOsm/kg (285-295); Potassium 3.9 mmol/L (3.5-5.1); Sodium 139 mmol/L (136-145)
[2022-09-23 05:29] VITALS: PULSE 70
[2022-09-23 05:46] LABS: Slide Review Slide Review Perform
[2022-09-23 06:42] LABS: Glucose Point of Care 140 mg/dL (70-110)
--- NOTE | 2022-09-23 06:50 | SUR.PREOP ---
HCG SCREEN/ WAIVER Floor notified to screen for prior to testing.
--- NOTE | 2022-09-23 07:00 | SUR.PREOP ---
UPDATE Hx of tubal ligation updated in surgical hx. Clear to proceed.
[2022-09-23] MEDS: regadenoson 0.4 Mg/5 ml Syringe IVP (07:32)
[2022-09-23 07:44] VITALS: BP 130/63; PULSE 93
--- NOTE | 2022-09-23 09:05 | PC.NURSE ---
patient returned from stress test and requested to leave against medical advice. Larisa CARDOSO removed patients line and discussed risks and benefits to leaving. AMA form signed. Dianna CARDOSO notified Dr. Ulloa, and escorted patient to elevator.
[2022-09-23 09:07] VITALS: BP 130/63; PULSE 93
--- NOTE | 2022-09-23 19:18 | PM.DCS ---
Discharge Providers Date of Admission: 09/22/22 19:50 Date of Discharge: September 23, 2022 Attending Provider at Admission: Juan Carlos Greene MD Attending Provider at Discharge: Sahara Ulloa MD Primary Care Provider: Myriam Bridges Diagnoses at Discharge Discharge Diagnosis (1) NSTEMI (non-ST elevated myocardial infarction): Status: Acute (2) Right shoulder pain: Status: Acute (3) Elevated troponin level: Status: Acute (4) History of type 2 diabetes mellitus: Status: Acute (5) History of hyperlipidemia: Status: Acute (6) History of essential hypertension: Status: Acute (7) Obesity: Status: Acute Reason for Visit Reason for Visit: Chest Pain Hospital Course Hospital Course Before patient could be evaluated, she left AMA right after stress test. I did not see this patient. Later on today around 6.30 pm, she called nursing station to ask about her stress test results. 1. Abnormal myocardial perfusion imaging with large sized area of ischemia is ?noted in the left circumflex artery. ?2. Medium sized prior infarct with maren-infarct ischemia is seen in the RCA and ?LAD terriory. ?3. LV systolic function is normal I discussed with cardiology over the phone. Patient's test was grossly abnormal. Paired that with her 6 hour delta troponin of 35, it would be recommended patient return to hospital for further evaluation and be treated for ACS. I personally called the patient to inform her of the results and told her my recommendation as listed above. She says she has never had cardiac issues or prior ID and has history of HTN. She said she will think about it, discuss with her family and then decide on course of action. I did tell the patient that with her abnormal stress test, should she develop chest pain, she may even have a myocardial infarction and there is risk of as well. Patient will need an angiogram. She will make a decision after discussing with her family. Discharge Data Studies Completed and Pending Completed Studies During Hospitalization Category Date Time Status Sestamibi Stress Test Request Routine Exams 09/22/22 23:36 Draft XR chest 1V portable [id number] Stat Exams 09/22/22 15:23 Completed XR shoulder RT min 2V* [id number] Stat Exams 09/22/22 19:41 Completed NM jesús perf SPECT r/s* [id number] Routine Nuc Med 09/23/22 23:36 Completed CV. echo complete* [id number] Stat Ultrasound 09/22/22 19:41 Completed Radiology Impressions Chest X-Ray 09/22/22 15:23 Impression: Negative chest. Shoulder X-Ray 09/22/22 19:41 IMPRESSION: No evidence of acute fracture or dislocation. Laboratory Results WBC 12.7 10^3/uL (4.0-10.0) H 09/23/22 04:29 RBC 5.37 10^6/uL (4.1-5.3) H 09/23/22 04:29 Hgb 15.6 g/dL (11.5-15.3) H 09/23/22 04:29 Hct 47.9 % (37.0-47.0) H 09/23/22 04:29 MCV 89.2 fl (81-99) 09/23/22 04:29 MCH 29.1 pg (28.0-34.0) 09/23/22 04:29 MCHC 32.6 g/dL (30.0-36.0) 09/23/22 04:29 RDW 14.0 % (12.1-15.1) 09/23/22 04:29 Plt Count 333 10^3/cmm (130-400) 09/23/22 04:29 MPV 9.0 fL (7.4-10.4) 09/23/22 04:29 Neut % (Auto) 46.7 % 09/23/22 04:29 Lymph % (Auto) 41.1 % 09/23/22 04:29 [place] % (Auto) 8.0 % 09/23/22 04:29 Eos % (Auto) 3.4 % 09/23/22 04:29 Baso % (Auto) 0.6 % 09/23/22 04:29 Neut # (Auto) 5.93 10^3/uL (1.8-7.7) 09/23/22 04:29 Lymph # (Auto) 5.2 10^3/uL (0.8-4.8) H 09/23/22 04:29 [place] # (Auto) 1.0 10^3/uL (0.2-0.9) H 09/23/22 04:29 Eos # (Auto) 0.4 10^3/uL (0.0-0.8) 09/23/22 04:29 Baso # (Auto) 0.1 10^3/uL (0.0-0.1) 09/23/22 04:29 Nucleated RBC % (auto) 0 % 09/23/22 04:29 Nucleated RBCs # 0.0 /100WBC 09/23/22 04:29 Sodium 139 mmol/L (136-145) 09/23/22 04:29 Potassium 3.9 mmol/L (3.5-5.1) 09/23/22 04:29 Chloride 104 mmol/L (98-107) 09/23/22 04:29 Carbon Dioxide 24 mmol/L (22-29) 09/23/22 04:29 Anion Gap 14.9 (5-19) 09/23/22 04:29 BUN 17 mg/dL (6-20) 09/23/22 04:29 Creatinine 0.5 mg/dL (0.5-0.9) 09/23/22 04:29 GFR Calculation 131.7 mL/min (90-130) H 09/23/22 04:29 Glucose 115 mg/dL (65-115) 09/23/22 04:29 POC Glucose 140 mg/dL (70-110) H 09/23/22 06:22 Estimat Average Glucose 148 09/22/22 15:30 Hemoglobin A1c 6.8 % (4.0-6.0) H 09/22/22 15:30 Calculated Osmolality 290 mOsm/kg (285-295) 09/23/22 04:29 Calcium 8.9 mg/dL (8.5-10.5) 09/23/22 04:29 Magnesium 2.1 mg/dL (1.7-2.3) 09/23/22 04:29 Total Bilirubin 0.2 mg/dL (0.15-1.2) 09/22/22 15:30 AST 20 U/L (0-32) 09/22/22 15:30 ALT 27 U/L (0-33) 09/22/22 15:30 Alkaline Phosphatase 55 U/L (35-105) 09/22/22 15:30 Troponin T Baseline 18 ng/L (0-10) H 09/22/22 15:30 Troponin T 120 Minute 33.01 ng/L (0-10) H 09/22/22 17:30 Delta Troponin T 15.01 ABS# (0-10) H* 09/22/22 17:30 Troponin T Hi Sens 6Hr 52.85 ng/L (0-10) H 09/22/22 21:32 Troponin T Hi Sens 6Hr Delta 34.85 ng/L (0-12) H* 09/22/22 21:32 C-Reactive Protein 8.0 mg/L (0.0-4.9) H 09/22/22 17:30 NT-Pro-B Natriuret Pep 124 pg/mL (0-125) 09/22/22 17:30 Total Protein 7.4 g/dL (6.6-8.7) 09/22/22 15:30 Albumin 4.6 g/dL (3.5-5.2) 09/22/22 15:30 Globulin 2.8 g/dL (1.3-4.6) 09/22/22 15:30 Triglycerides 268 mg/dL (0-150) H 09/22/22 21:32 Cholesterol 209 mg/dL (0-200) H 09/22/22 21:32 LDL Cholesterol, Calc 125 mg/dL (50-129) 09/22/22 21:32 HDL Cholesterol 30 mg/dL (60-100) L 09/22/22 21:32 LDL/HDL Ratio 4.17 RATIO (0.00-3.22) H 09/22/22 21:32 Cholesterol/HDL Ratio 6.97 mg/dL (0.0-4.40) H 09/22/22 21:32 TSH 1.04 uIU/mL (0.27-4.20) 09/22/22 21:32 Vitals Last Vital Signs Temp 97.7 F 09/23/22 03:45 Pulse 93 09/23/22 09:07 Resp 15 09/23/22 03:45 BP 130/63 09/23/22 09:07 Pulse Ox 97 09/23/22 03:45 O2 Del Method 09/23/22 03:45 Discharge Plan Discharge Patient Disposition: Left Against Medical Advice Condition: Fair Prescriptions: No Action amlodipine 5 mg Tablet 5 mg PO DAILY metformin 1,000 mg Tablet 1,000 mg PO BID fenofibrate nanocrystallized 145 mg Tablet 145 mg PO DAILY naproxen sodium [Aleve] 220 mg Tablet 220 mg PO BID PRN (Reason: Pain) Fish Oil 100-160-1,000 mg Capsule 1 cap PO DAILY atorvastatin 20 mg tablet 20 mg PO DAILY aspirin 81 mg Tablet,Chewable 81 mg PO DAILY losartan-hydrochlorothiazide 50-12.5 mg tablet 1 tab PO DAILY propranolol 20 mg tablet 20 mg PO DAILY Referrals: Myriam Bridges FNP [Primary Care Provider] - Patient Instructions: Opioid Safety Discharge Attestations Time Spent in Discharge Care*: less than 30 min Quality Metrics Clinical Quality Measures [ No reported AMI, CVA or VTE this stay] Coding Level of Care Code Acute g FW DC note Diagnoses NSTEMI (non-ST elevated myocardial infarction) I21.4 Right shoulder pain M25.511 Elevated troponin level R77.8 History of type 2 diabetes mellitus Z86.39 History of hyperlipidemia Z86.39 History of essential hypertension Z86.79 Obesity E66.9
--- NOTE | 2022-09-23 23:36 | NMCV_ITS ---
NM jesús perf SPECT r/s* [id number] Varun Villatoro Age: 47 Gender: F : 1975 Exam Date: 09/23/2022 06:37 Ordering Phys: Juan Carlos Greene MD Technologist: KUNAL Caraballo Exam Location: [facility] Indications: CHEST PAIN STRESS TEST [facility] IMAGE PROTOCOL Rest/Stress 1 Lexiscan Day Radiopharmaceutical Dose (mCi) Administration Site Administered by Rest: Tc-99m 10.8 IV KUNAL Mota Sestamibi Stress:Tc-99m 32.4 IV KUNAL Mota Sestamibi Rest: 23-Sep-2022 60 Discovery 630 Stress: 23-Sep-2022 30 Discovery 630 0.4mg Lexiscan. Images obtained in supine and prone position. SPECT RESULTS Technical Quality: Excellent Raw Data Analysis: Normal, Breast attenuation Image Corrections: No attenuation or motion correction applied Summed Stress Score: 13 Summed Rest Score: 5 Summed Difference Score: 8 PERFUSION FINDINGS There is a medium sized partially reversible perfusion defect noted in the apical, apical anterior buitrago. This is consistent with medium sized prior infarct with significant reversibility noted in the LAD territory. A large sized mostly reversible perfusion defect is noted in the inferolateral wall. This is consistent with large sized area of ischemia in the left circumflex artery territory. A partially reversible, perfusion defect is noted in apical inferior wall. This is consistent with medium sized prior infarct with maren-infarct ischemia FUNCTIONAL RESULTS (calculated via Gated SPECT) Stress Image LV EF (%): 57 Stress EDV (mL):91 TID: 1.13 Stress ESV (mL):39 FUNCTIONAL FINDINGS: LV systolic function is normal IMPRESSIONS 1. Abnormal myocardial perfusion imaging with large sized area of ischemia is noted in the left circumflex artery. 2. Medium sized prior infarct with maren-infarct ischemia is seen in the RCA and LAD terriory. 3. LV systolic function is normal Frederick Sharma MD (Electronically Signed) Final Date: 23 September 2022 10:53 S
== END 2022-09-23 09:08 | disposition left against medical advice (07) ==
LOC: ER 19:11 → MEDSURG 19:50
PROVIDERS: Family Medicine; Admitting Provider Family Medicine; Emergency Provider Family Medicine; PCP Nurse Practitioner Family; Visit Provider Internal Medicine
DX: I21.4 Non-ST elevation (NSTEMI) myocardial infarction (principal); M25.511 Pain in right shoulder; R77.8 Other specified abnormalities of plasma proteins; Z86.39 Personal history of other endocrine, nutritional and metabolic disease; Z86.79 Personal history of other diseases of the circulatory system; E66.9 Obesity, unspecified; Z68.34 Body mass index [BMI] 34.0-34.9, adult; Z53.29 Procedure and treatment not carried out because of patient's decision for other reasons; I10 Essential (primary) hypertension; E11.9 Type 2 diabetes mellitus without complications; E78.5 Hyperlipidemia, unspecified; Z79.84 Long term (current) use of oral hypoglycemic drugs; F17.210 Nicotine dependence, cigarettes, uncomplicated; Z82.49 Family history of ischemic heart disease and other diseases of the circulatory system
CPT/HCPCS: 36415; 36416; 71045; 73030; 78452; 80048; 80053; 80061; 82962; 83036; 83735; 83880; 84443; 84484; 85025; 86140; 93005; 93017; 93306; 94664; 96372; 96374; 99285; A9500; G0378; J2785

== ENCOUNTER 2022-09-23 19:40 | Inpatient (IN) | payer MEDICAID, SELFPAY ==
--- NOTE | 2022-09-23 19:48 | XRR_ITS ---
PROCEDURE INFORMATION: Exam: XR Chest Exam date and time: 09/23/2022 10:38 PM Age: 47 years old Clinical indication: Patient HX: Called back to er for having a positive stress test. ; Additional info: Cp TECHNIQUE: Imaging protocol: Radiologic exam of the chest. Views: 1 view. COMPARISON: CR XR chest 1V portable [id number] 09/22/2022 3:33 PM FINDINGS: Lungs: Unremarkable. No consolidation. Pleural spaces: Unremarkable. No pleural effusion. No pneumothorax. Heart/Mediastinum: Unremarkable. No cardiomegaly. Bones/joints: Unremarkable. XR/XR chest 1V portable [id number] IMPRESSION: No acute findings.
[2022-09-23 19:50] VITALS: BP 169/82; PULSE 98; RESP 20; TEMP 36.5; O2SAT 97; BMI 34.5
--- NOTE | 2022-09-23 20:02 | ECG_ITS ---
Test Date: 2022-09-23 Pat Name: Varun Villatoro Department: Room: Gender: Female Sizer Hand: : 1975 Requested By: Luh Renae Order Number: [id number] Alcides MD: Afua Temple M.D. Measurements Intervals [place] Rate: 93 P: 3 MA: 191 QRS: 76 QRSD: 88 T: 25 QT: 365 QTc: 455 Interpretive Statements SINUS RHYTHM POSSIBLE LEFT ATRIAL ENLARGEMENT [-0.1mV P-WAVE IN V1/V2] LOW QRS VOLTAGE IN PRECORDIAL LEADS [QRS DEFLECTION < 1.0 mV IN CHEST LEADS] ANTEROSEPTAL MYOCARDIAL INFARCTION , OF INDETERMINATE AGE [40+ ms Q WAVE IN V1-V4] MODERATE T-WAVE ABNORMALITY, CONSIDER LATERAL ISCHEMIA [-0.1+ mV T-WAVE IN I/aVL/V5/V6] Compared to ECG 09/23/2022 01:08:48 Low QRS voltage now present T-wave abnormality now present Possible ischemia now present Myocardial infarct finding still present Electronically Signed On 09-24-2022 7:37:00 CONTINUOUS WAVE OPERATOR by Afua Temple M.D. [id number]
--- NOTE | 2022-09-23 21:00 | P.HP_ITS ---
Providers/Chief Complaint Admitting Physician: Juan Carlos Greene MD Primary Care Provider: Myriam Bridges Chief Complaint: Stress test Back, Blockage History of Present Illness Varun Villatoro is a 47 year old female with a past medical history of hypertension, hyperlipidemia, type 2 diabetes mellitus, obesity, who presents [facility] as she left AGAINST MEDICAL ADVICE and she was called back to the hospital because of a positive stress test. She tells me that she was just upset about waiting here in the hospital, not having her questions answered. When she got home she did not have any chest pain, no palpitations. Review of Systems Const: Denies: fever(s), fatigue or malaise Eyes: Denies: change in vision ENMT: Denies: nasal congestion Resp: Denies: dyspnea, productive cough, non-productive cough or wheezing GI: Denies: abdominal pain, nausea or vomiting : Denies: dysuria Musc: Denies: back pain Neuro: Denies: headache(s), dizziness or vertigo Endo: Denies: polyuria or polydipsia Medications/Allergies Home Medications Medication Instructions Recorded Confirmed Last Taken Type amlodipine 5 mg tablet 5 mg PO DAILY 04/03/20 09/22/22 09/21/22 History fenofibrate nanocrystallized 145 145 mg PO DAILY 04/03/20 09/22/22 09/21/22 History mg tablet metformin 1,000 mg tablet 1,000 mg PO BID 04/03/20 09/22/22 09/21/22 History naproxen sodium 220 mg tablet 220 mg PO BID PRN Pain 04/03/20 09/22/22 Unknown History (Aleve) omega 7-ctg-gti-fish oil 100 1 cap PO DAILY 04/03/20 09/22/22 09/21/22 History mg-160 mg-1,000 mg capsule (Fish Oil) aspirin 81 mg chewable tablet 81 mg PO DAILY 09/22/22 09/22/22 09/21/22 History atorvastatin 20 mg tablet 20 mg PO DAILY 09/22/22 09/22/22 09/21/22 History losartan 50 mg-hydrochlorothiazide 1 tab PO DAILY 09/22/22 09/22/22 09/21/22 History 12.5 mg tablet propranolol 20 mg tablet 20 mg PO DAILY 09/22/22 09/22/22 09/22/22 History Allergies Allergy/AdvReac Type Severity Reaction Status Date / Time No Known Allergies Allergy Verified 09/23/22 07:02 PFSH Acute PFSH: Medical History History of essential hypertension History of hyperlipidemia History of type 2 diabetes mellitus Surgical History No pertinent past surgical history Family History Father CAD (coronary artery disease) Social History Smoking and tobacco status: current every day smoker Alcohol intake: never Vitals/I&O/Wt Last Vital Signs Temp 97.7 F 09/23/22 19:50 Pulse 94 09/24/22 05:45 Resp 20 H 09/23/22 19:50 BP 169/82 09/23/22 19:50 Pulse Ox 97 09/23/22 19:50 O2 Del Method 09/23/22 19:50 Weight last 48 hrs Weight 85.729 kg Physical Exam Const: COMMON NORMALS: no acute distress and patient oriented x3 HENMT: COMMON NORMALS: normocephalic HEAD & SCALP: normocephalic Eye: COMMON NORMALS: Equal, round and reactive pupils present and EOMs intact bilaterally Neck/C-Spine: COMMON NORMALS: no JVD Resp: COMMON NORMALS: normal respiratory effort, No retractions, No use of accessory muscles and clear to auscultation bilaterally AUSCULTATION: clear to auscultation bilaterally Cardio: COMMON NORMALS: no JVD, regular rate, regular rhythm, S1 normal heart sound present and S2 normal heart sound present RATE: regular rate RHYTHM: regular rhythm HEART SOUNDS: S1 normal heart sound present and S2 normal heart sound present GI: COMMON NORMALS: Normal to inspection, nondistended, normoactive bowel sounds present, Soft to palpation and non-tender PALPATION: Yes Soft to palpation and Yes No hepatosplenomegaly present Extremity: COMMON NORMALS: capillary refill normal, no clubbing, cyanosis or edema, no calf tenderness and no pedal edema Neuro: COMMON NORMALS: patient oriented x3, CN's II-XII intact bilaterally, moves all extremities and no focal motor deficits Psych: COMMON NORMALS: mental status grossly normal Data 09/23/22 21:07 09/23/22 21:07 A&P Assessment and plan (1) Obesity: (2) History of type 2 diabetes mellitus: (3) History of essential hypertension: (4) History of hyperlipidemia: (5) NSTEMI (non-ST elevated myocardial infarction): (6) Positive cardiac stress test: Plan 1. Abnormal myocardial perfusion imaging with large sized area of ischemia is ?noted in the left circumflex artery. ?2. Medium sized prior infarct with maren-infarct ischemia is seen in the RCA and ?LAD terriory. ?3. LV systolic function is normal echo LV systolic function is normal with EF 55 to 60%. ?Grade 1 diastolic dysfunction ?Mild tricuspid regurgitation ?No comparison studies are available -N.p.o. midnight -Has received therapeutic Lovenox -Continue aspirin, statin, beta-daron -Cardiology consulted by ER, likely will get a coronary angiogram -Low-dose sliding scale -Full code -Lovenox for DVT prophylaxis Attestations Medical Necessity Statement*: Patient requires hospitalization for chest pain, NSTEMI, inpatient, greater than 2 midnights Coding Level of Care Code Acute Code for Chg Fwd Diagnoses Obesity E66.9 History of type 2 diabetes mellitus Z86.39 History of essential hypertension Z86.79 History of hyperlipidemia Z86.39 NSTEMI (non-ST elevated myocardial infarction) I21.4 Positive cardiac stress test R94.39
[2022-09-23 21:14] LABS: Basophils # 0.1 10^3/uL (0.0-0.1); Basophils % 0.6 %; Eosinophils # 0.5 10^3/uL (0.0-0.8); Eosinophils % 3.1 %; Hematocrit 51.6 % (37.0-47.0); Hemoglobin 17.2 g/dL (11.5-15.3); Lymphocytes # 5.3 10^3/uL (0.8-4.8); Lymphocytes % 36.8 %; Mean Corpuscular HGB Conc 33.3 g/dL (30.0-36.0); Mean Corpuscular Hemoglobin 29.3 pg (28.0-34.0); Mean Corpuscular Volume 87.8 fl (81-99); Mean Platelet Volume 8.9 fL (7.4-10.4); Monocytes # 1.1 10^3/uL (0.2-0.9); Monocytes % 7.7 %; Neutrophils # 7.39 10^3/uL (1.8-7.7); Neutrophils % 51.5 %; Nucleated Red Blood Cells % 0 %; Platelet Count 426 10^3/cmm (130-400); Red Blood Count 5.88 10^6/uL (4.1-5.3); Red Cell Distribution Width 13.8 % (12.1-15.1); White Blood Count 14.3 10^3/uL (4.0-10.0)
[2022-09-23 21:37] LABS: Alanine Aminotransferase 23 U/L (0-33); Albumin Level 4.4 g/dL (3.5-5.2); Alkaline Phosphatase 62 U/L (35-105); Anion Gap 19.8 (5-19); Aspartate Amino Transferase 16 U/L (0-32); Blood Urea Nitrogen 19 mg/dL (6-20); Calcium 10.2 mg/dL (8.5-10.5); Carbon Dioxide 22 mmol/L (22-29); Chloride 103 mmol/L (98-107); Globulin 3.6 g/dL (1.3-4.6); Glomerular Filtration Rate 106.7 mL/min (90-130); Glucose 122 mg/dL (65-115); Osmolality Calculated 296 mOsm/kg (285-295); Potassium 3.8 mmol/L (3.5-5.1); Sodium 141 mmol/L (136-145); Total Bilirubin 0.2 mg/dL (0.15-1.2)
[2022-09-23 21:40] LABS: Troponin(5th) Baseline 66 ng/L (0-10)
--- NOTE | 2022-09-23 21:48 | ECG_ITS ---
[facility] Test Date: 2022-09-23 Pat Name: Varun Villatoro Department: Room: Gender: Female Computer Lab Aide: : 1975 Requested By: Luh Renae Order Number: [id number] Alcides MD: Afua Temple M.D. Measurements Intervals [place] Rate: 87 P: 59 SD: 176 QRS: 10 QRSD: 84 T: -26 QT: 389 QTc: 470 Interpretive Statements SINUS RHYTHM POSSIBLE LEFT ATRIAL ENLARGEMENT [-0.1mV P-WAVE IN V1/V2] ANTEROSEPTAL MYOCARDIAL INFARCTION , OF INDETERMINATE AGE [40+ ms Q WAVE IN V1-V4] MODERATE T-WAVE ABNORMALITY, CONSIDER LATERAL ISCHEMIA [-0.1+ mV T-WAVE IN I/aVL/V5/V6] MODERATE T-WAVE ABNORMALITY, CONSIDER INFERIOR ISCHEMIA [-0.1+ mV T-WAVE IN II/aVF] Compared to ECG 09/23/2022 01:08:48 T-wave abnormality now present Possible ischemia now present Myocardial infarct finding still present Electronically Signed On 09-24-2022 7:40:32 SAFETY MANAGER by Afua Temple M.D. [id number]
--- NOTE | 2022-09-23 22:35 | ED_ITS ---
HPI - General Adult General: Chief complaint: General Medical Stated complaint: Stress test Back, Blockage Time Seen by Provider: 09/23/22 22:04 Source: patient Mode of arrival: ambulatory Limitations: no limitations History of Present Illness: 47-year-old female who was admitted last night for NSTEMI she had a stress test this morning that was abnormal she had then left AMA because they would not let her smoke patient was called back informed she need to come back she likely needs a cath she denies any chest pain at this time denies any shortness of breath. Associated symptoms: Deny chest pain, dyspnea, headache(s), nausea, rash or vomiting Review of Systems Const: Denies: fever(s), chills, body aches or change in appetite Eyes: Denies: blurry vision or eye discomfort ENMT: Denies: throat pain or dental pain Card: Denies: chest pain Resp: Denies: dyspnea GI: Denies: abdominal pain, nausea, vomiting or diarrhea : Denies: dysuria Musc: Denies: neck pain or back pain Skin/Breast: Denies: rash Neuro: Denies: headache(s) Psych: Denies: depression Thong/Lymph: Denies: easy bruising All/Imm: Denies: urticaria PFSH ED PFSH: Medical History History of essential hypertension History of hyperlipidemia History of type 2 diabetes mellitus Surgical History (Updated 09/23/22 @ 07:00 by Eitan Jackson RN) No pertinent past surgical history Family History (Updated 09/22/22 @ 19:46 by Juan Carlos Greene MD) Father CAD (coronary artery disease) Social History Smoking and tobacco status: current every day smoker Alcohol intake: never Physical Exam Const: COMMON NORMALS: patient oriented x3 HENMT: COMMON NORMALS: normocephalic and atraumatic HEAD & SCALP: normocephalic and atraumatic Eye: COMMON NORMALS: Equal, round and reactive pupils present and EOMs intact bilaterally PUPIL: Yes Equal, round and reactive pupils present Neck/C-Spine: COMMON NORMALS: full ROM and supple Chest: COMMONS NORMALS: normal inspection of the chest and normal palpation of entire chest wall Resp: COMMON NORMALS: normal respiratory effort, No retractions, No use of accessory muscles and clear to auscultation bilaterally AUSCULTATION: clear to auscultation bilaterally Cardio: COMMON NORMALS: regular rate, regular rhythm and No murmurs present (Cardio) RATE: regular rate RHYTHM: regular rhythm GI: COMMON NORMALS: Normal to inspection, nondistended, normoactive bowel sounds present, Soft to palpation, non-tender and no masses PALPATION: Yes Soft to palpation Extremity: COMMON NORMALS: normal to inspection and full ROM Neuro: COMMON NORMALS: patient oriented x3, moves all extremities and no focal motor deficits Psych: COMMON NORMALS: mental status grossly normal, Normal thought process present and cooperative THOUGHT PROCESS: Normal thought process present Skin: COMMON NORMALS: no rashes or lesions noted and no wounds GENERAL SKIN EXAM: no rashes or lesions noted Course Vital Signs: Vital signs: Vital Signs Temperature 97.7 F 09/23/22 19:50 Pulse Rate 98 09/23/22 19:50 Respiratory Rate 20 H 09/23/22 19:50 Blood Pressure 169/82 09/23/22 19:50 Pulse Oximetry 97 09/23/22 19:50 Oxygen Delivery Me thod 09/23/22 19:50 MDM - General Adult Medical Decision Making Patient presents here after leaving AMA today she had a stress test that was abnormal I called her back and told her she needed a cardiac cath she denies any pain currently her troponin is elevated will admit at this time I spoke to cardiology along with hospitalist Lab Data 09/23/22 21:07 09/23/22 21:07 Laboratory Results WBC 14.3 10^3/uL (4.0-10.0) H 09/23/22 21:07 RBC 5.88 10^6/uL (4.1-5.3) H 09/23/22 21:07 Hgb 17.2 g/dL (11.5-15.3) H 09/23/22 21:07 Hct 51.6 % (37.0-47.0) H 09/23/22 21:07 MCV 87.8 fl (81-99) 09/23/22 21:07 MCH 29.3 pg (28.0-34.0) 09/23/22 21:07 MCHC 33.3 g/dL (30.0-36.0) 09/23/22 21:07 RDW 13.8 % (12.1-15.1) 09/23/22 21:07 Plt Count 426 10^3/cmm (130-400) H 09/23/22 21:07 MPV 8.9 fL (7.4-10.4) 09/23/22 21:07 Neut % (Auto) 51.5 % 09/23/22 21:07 Lymph % (Auto) 36.8 % 09/23/22 21:07 [place] % (Auto) 7.7 % 09/23/22 21:07 Eos % (Auto) 3.1 % 09/23/22 21:07 Baso % (Auto) 0.6 % 09/23/22 21:07 Neut # (Auto) 7.39 10^3/uL (1.8-7.7) 09/23/22 21:07 Lymph # (Auto) 5.3 10^3/uL (0.8-4.8) H 09/23/22 21:07 [place] # (Auto) 1.1 10^3/uL (0.2-0.9) H 09/23/22 21:07 Eos # (Auto) 0.5 10^3/uL (0.0-0.8) 09/23/22 21:07 Baso # (Auto) 0.1 10^3/uL (0.0-0.1) 09/23/22 21:07 Nucleated RBC % (auto) 0 % 09/23/22 21:07 Nucleated RBCs # 0.0 /100WBC 09/23/22 21:07 Sodium 141 mmol/L (136-145) 09/23/22 21:07 Potassium 3.8 mmol/L (3.5-5.1) 09/23/22 21:07 Chloride 103 mmol/L (98-107) 09/23/22 21:07 Carbon Dioxide 22 mmol/L (22-29) 09/23/22 21:07 Anion Gap 19.8 (5-19) H 09/23/22 21:07 BUN 19 mg/dL (6-20) 09/23/22 21:07 Creatinine 0.6 mg/dL (0.5-0.9) 09/23/22 21:07 GFR Calculation 106.7 mL/min (90-130) 09/23/22 21:07 Glucose 122 mg/dL (65-115) H 09/23/22 21:07 Calculated Osmolality 296 mOsm/kg (285-295) H 09/23/22 21:07 Calcium 10.2 mg/dL (8.5-10.5) 09/23/22 21:07 Total Bilirubin 0.2 mg/dL (0.15-1.2) 09/23/22 21:07 AST 16 U/L (0-32) 09/23/22 21:07 ALT 23 U/L (0-33) 09/23/22 21:07 Alkaline Phosphatase 62 U/L (35-105) 09/23/22 21:07 Troponin T Baseline 66 ng/L (0-10) H 09/23/22 21:07 Total Protein 8.0 g/dL (6.6-8.7) 09/23/22 21:07 Albumin 4.4 g/dL (3.5-5.2) 09/23/22 21:07 Globulin 3.6 g/dL (1.3-4.6) 09/23/22 21:07 Discharge Plan Discharge Patient Disposition: Admitted As Inpatient Admit Provider: Juan Carlos Greene Clinical Impression: NSTEMI (non-ST elevated myocardial infarction) Condition: Stable Coding Level of Care Code ED Automation Test Developer for Ave Fwd Exam Comprehensive
[2022-09-23] MEDS: enoxaparin 80 mg/0.8 mL Syringe SUBCUT (23:16)
[2022-09-24] VITALS (95 sets, daily range): BP systolic 92–168; BP diastolic 56–129; PULSE 70–96; RESP 4–29; TEMP 36.4–37.2; O2SAT 90–98
[2022-09-24] MEDS: nicotine 21 mg Patch 1 PATCH TRANSDERMA ×2 (00:37→10:04)
[2022-09-24 00:39] LABS: Troponin 5 2HR 57.89 ng/L (0-10)
[2022-09-24 00:53] LABS: Troponin 5 2HR Delta -8.11 ABS# (0-10)
--- NOTE | 2022-09-24 01:48 | ECG_ITS ---
[facility] Test Date: 2022-09-24 Pat Name: Varun Villatoro Department: Room: 111 Gender: Female Countersinker Balance Screw Hole: : 1975 Requested By: Luh Renae Order Number: [id number] Alcides MD: Afua Temple M.D. Measurements Intervals [place] Rate: 82 P: 43 ME: 180 QRS: 1 QRSD: 88 T: -46 QT: 416 QTc: 488 Interpretive Statements SINUS RHYTHM SEPTAL MYOCARDIAL INFARCTION , OF INDETERMINATE AGE [40+ ms Q WAVE IN V1/V2] MODERATE T-WAVE ABNORMALITY, CONSIDER ANTEROLATERAL ISCHEMIA [-0.1+ mV T-WAVE IN V3-V6] MODERATE T-WAVE ABNORMALITY, CONSIDER INFERIOR ISCHEMIA [-0.1+ mV T-WAVE IN II/aVF] Compared to ECG 09/23/2022 22:29:18 No significant changes Electronically Signed On 09-24-2022 7:40:03 COMBAT SYSTEMS OFFICER by Afua Temple M.D. [id number]
[2022-09-24 06:05] LABS: Troponin 5 6HR 66.33 ng/L (0-10)
[2022-09-24 06:17] LABS: Troponin 5 6HR Delta 0.33 ng/L (0-12)
--- NOTE | 2022-09-24 06:56 | PM.CONSULT ---
Providers/Reason For Consult Consulting Physician/Specialty*: Dr. Temple, Cardiology Reason for Consult*: Abnormal stress test Attending Physician: Juan Carlos Greene MD Primary Care Provider: Myriam Bridges History of Present Illness History of Present Illness Varun Villtaoro is a 47 year old female with past medical history of jqj-coeawwr-enqjzxfug type 2 diabetes mellitus, hypertension, hyperlipidemia and chronic active smoker who presented to ER 2 days back for right shoulder pain, right-sided chest pain described like a pressure or squeezing like pain.? She underwent echo and stress test and then left AMA. She presented last night after finding out the results of abnormal stress test to be re-evaluated. No chest pain. EKG showed sinus rhythm, anteroseptal infarct of indeterminate age and ST and T wave changes in anterolateral and inferior leads. Review of Systems General: Reports: 10 or more systems reviewed and unremarkable except in HPI and below Const: Denies: fever(s), fatigue or malaise Eyes: Denies: change in vision ENMT: Denies: nasal congestion Resp: Denies: dyspnea, productive cough, non-productive cough or wheezing GI: Denies: abdominal pain, nausea or vomiting : Denies: dysuria Musc: Denies: back pain Neuro: Denies: headache(s), dizziness or vertigo Endo: Denies: polyuria or polydipsia Medications/Allergies Home Medications Medication Instructions Recorded Confirmed Last Taken Type amlodipine 5 mg tablet 5 mg PO DAILY 04/03/20 09/24/22 09/21/22 History fenofibrate nanocrystallized 145 145 mg PO DAILY 04/03/20 09/24/22 09/21/22 History mg tablet metformin 1,000 mg tablet 1,000 mg PO BID 04/03/20 09/24/22 09/21/22 History naproxen sodium 220 mg tablet 220 mg PO BID PRN Pain 04/03/20 09/24/22 Unknown History (Aleve) omega 1-szc-trn-fish oil 100 1 cap PO DAILY 04/03/20 09/24/22 09/21/22 History mg-160 mg-1,000 mg capsule (Fish Oil) aspirin 81 mg chewable tablet 81 mg PO DAILY 09/22/22 09/24/22 09/21/22 History atorvastatin 20 mg tablet 20 mg PO DAILY 0109/24/22 09/21/22 History losartan 50 mg-hydrochlorothiazide 1 tab PO DAILY 09/22/22 09/24/22 09/21/22 History 12.5 mg tablet propranolol 20 mg tablet See Rx Instructions .Route .COMPLEX 09/22/22 09/24/22 09/22/22 History Allergies Allergy/AdvReac Type Severity Reaction Status Date / Time No Known Allergies Allergy Verified 09/24/22 08:52 Current Medications Generic Name Dose Route Start Last Admin Trade Name Ivelisse PRN Reason Stop Dose Admin Nicotine 1 patch 09/24/22 00:30 09/24/22 00:37 Nicotine 21 Mg Patch TRANSDERMA 1 patch ONCE MARK Administration PFSH Acute PFSH: Medical History History of essential hypertension History of hyperlipidemia History of type 2 diabetes mellitus Surgical History No pertinent past surgical history Family History Father CAD (coronary artery disease) Social History Smoking and tobacco status: current every day smoker Alcohol intake: never Vitals/I&O/Wt Last Vital Signs Temp 97.7 F 09/23/22 19:50 Pulse 94 09/24/22 05:45 Resp 20 H 09/23/22 19:50 BP 169/82 09/23/22 19:50 Pulse Ox 97 09/23/22 19:50 O2 Del Method 09/23/22 19:50 Weight last 48 hrs Weight 189 lb Physical Exam Narrative: Gen: obese lady in bed, NAD HEENT/ Neck: EOMI, No carotid bruit RS:CTAB/L, No wheezes, rales on rhonchi CVS:S1, S2 regular, No murmur, rub or gallop PA: soft, NT, ND Ext: warm, good peripheral pulses PARTS SALES REPRESENTATIVE:AAOx3, No FND Data 09/23/22 21:07 09/23/22 21:07 Other Labs: Troponin 66--58--66; last admission (--33--53) [id number] Other data: TTE (09/22/22) CONCLUSIONS ?LV systolic function is normal with EF 55 to 60%. ?Grade 1 diastolic dysfunction ?Mild tricuspid regurgitation ?No comparison studies are available Sestamibi MPI (09/23/22) MPRESSIONS ?1. Abnormal myocardial perfusion imaging with large sized area of ischemia is ?noted in the left circumflex artery. ?2. Medium sized prior infarct with maren-infarct ischemia is seen in the RCA and ?LAD terriory. ?3. LV systolic function is candelaria A&P Assessment and plan (1) NSTEMI (non-ST elevated myocardial infarction): received 1 dose of lovenox last night patient remains CP free and no events on telemetry. Preserved LV function in echo Given abnormal stress test with multivessel involvement, will proceed with [facility] later today. Risks and benefits were discussed with the patients. Possible complications including risk of heart attack stroke and , coronary perforation, dissection, arrhythmia, cardiac tamponade in urgent CABG were discussed with the patient as well. Plan is to proceed for the procedure at the earliest. -plan to load with P2Y12 inhibitor after delineating coronary anatomy. -continue ASA, statin. -Beta daron held this morning with soft BP -case was discussed with Dr. Sharma. (2) Positive cardiac stress test: (3) History of essential hypertension: (4) History of type 2 diabetes mellitus: (5) History of hyperlipidemia: Plan Thank you for allowing me to see the patient. Patient seen today via Telehealth by agreement and consent of patient. Telehealth technology used during the visit include video and audio. Interview and Exam was conducted with the help of bedside RN and house supervisior. Time spent in encounter 30 minutes with >50% time spent face to face. Coding Level of Care Code Acute Code for [facility] Fwd Diagnoses NSTEMI (non-ST elevated myocardial infarction) I21.4 Positive cardiac stress test R94.39 History of essential hypertension Z86.79 History of type 2 diabetes mellitus Z86.39 History of hyperlipidemia Z86.39
[2022-09-24 07:46] LABS: Glucose Point of Care 131 mg/dL (70-110)
--- NOTE | 2022-09-24 09:19 | XACV_ITS ---
Exam Room: 2 Ht: 157 cm Wt: 86 kg BSA: 1.98 m2 Gender: Female : 1975 Exam Priority: Routine Procedure(s): Procedure Description: Diagnostic procedure Procedure Description: PCI procedure Procedure Description: Drug Eluting Coronary Stent Procedure Description: Bare Metal Coronary Stent Procedure Description: PTCA Procedure Description: Coronary Angiography Diagnostic Cath Status: Urgent Diagnostic Findings * Mid Right Coronary Artery: obstructive 80% stenosis, RAYMUNDO: 3 flow. * Proximal Circumflex: chronic total occlusion, RAYMUNDO: 0 flow. Has collateral blood flow to distal vessel. * Small sized 1st Diagonal branch has severe 90% stenosis, RAYMUNDO: 3 flow. * Ramus intermedius artery: Patent. * Left Main has no disease. * Mid Left Anterior Descending: severe 90% stenosis, RAYMUNDO: 3 flow. * Proximal Right Coronary Artery to Mid Right Coronary Artery: obstructive 70% stenosis, RAYMUNDO: 3 flow. * Coronary angiography shows right dominance. PCI Status: Urgent PCI Indication: NSTE - ACS Interventional Findings * PROCEDURE DETAIL: Patient did not want surgical consult and wanted to proceed with PCI. We engaged left main artery with XB 3.5 guide catheter. IV heparin was administered to maintain ACT above 250S. 0.014 run-through guidewire was used to cross mid LAD stenosis and was put in distal vessel. We predilated the stenosis with 2.5 x 12 mm semicompliant balloon. This was followed by placement of 3.5 x 18 mm resolute Rosetta drug-eluting stent. We postdilated the stent with a 3.75 x 6 mm NC balloon. At this time final angiogram was performed that showed excellent stent expansion, no residual stenosis and RAYMUNDO-3 flow. Guidewire and guide catheter were removed. We then turned our attention to RCA stenoses. JR4 guide catheter was used to engage RCA. 0.014 run-through guidewire was used to cross the RCA stenosis and was put in distal vessel. We predilated the stenosis with 2.5 x 12 mm semicompliant balloon. This was followed by placement of 3.0 x 30 mm Resolute rosetta stent in proximal RCA. This was followed by placement of 3.0 x 22 mm resolute Rosetta drug-eluting stent. We then postdilated the stents with 3.5 x 15 mm NC balloon.At this time angiogram showed mid RCA had stent underexansion we again post dilated that area with high pressure inflation that improved the underexpanded area. Guidewire and guide cathteter were removed. Patient left the outside laborer in a stable condition. . * Mid Left Anterior Descendin% stenosis treated with a AB TREK 2.50X12 RX BALLOON, MDT R ROSETTA 3.5X18 CLARISSE, and MDT NC EUPHORA RX [id number] BALLOON. 0% residual stenosis, RAYMUNDO: 3 flow. * Proximal Right Coronary Artery to Mid Right Coronary Artery: 70% stenosis treated with a AB TREK 2.50X12 RX BALLOON, and MDT R ROSETTA 3.0X30 CLARISSE. 0% residual stenosis, RAYMUNDO: 3 flow. * Mid Right Coronary Artery: 70% stenosis treated with a AB TREK 2.50X12 RX BALLOON, MDT R ROSETTA 3.0X22 CLARISSE, and MDT NC EUPHORA RX [id number] BALLOON. 0% residual stenosis, RAYMUNDO: 3 flow. Conclusions 1. Severe multivessel CAD 2. . 3. S/p successful revascularization of mid LAD with CLARISSE x1. 4. Successful revascularization of proximal to mid RCA with CLARISSE x2.. 5. Mid Left Anterior Descending was treated with a Balloon, Drug Eluting Stent, and Balloon. 6. Proximal Right Coronary Artery to Mid Right Coronary Artery was treated with a Balloon, and Drug Eluting Stent. 7. Mid Right Coronary Artery was treated with a Balloon, Drug Eluting Stent, and Balloon. Recommendations * Transfer to cardiac stepdown unit. * Dual antiplatelet therapy with aspirin and Brilinta for at least 1 year. * High intensity statin therapy. * Outpatient cardiology follow up in 4 weeks. Interventional RX Recommendation: PCI w/o planned CABG Diagnostic RX Recommendation: PCI w/o planned CABG Anticoagulation: Heparin Pressures Phase:Rest AO : 151 / 86 ( 111 ) @ 12:41:00 PM 152 / 81 ( 110 ) @ 12:46:00 PM 151 / 72 ( 107 ) @ 12:46:00 PM 120 / 92 ( 106 ) @ 12:50:00 PM 89 / 71 ( 81 ) @ 1:00:00 PM 99 / 70 ( 85 ) @ 1:10:00 PM 113 / 73 ( 92 ) @ 1:17:00 PM 133 / 86 ( 108 ) @ 1:23:00 PM 95 / 65 ( 80 ) @ 1:31:00 PM LV : 155 / -21 / 10 @ 12:46:00 PM 152 / -19 / 11 @ 12:46:00 PM Valves Phase:DefaultPhase AV : 0.0 @ 1:41:09 PM 0.0 @ 1:41:09 PM AV Mean Gradient: 0.0 @ 1:41:09 PM Clinical Evaluation EBL: 5mL-10mL Procedural Details Pre-Procedure Time Out. Identified patient by full name and date of as verbalized by the patient/guarantor. Does the consent match the physician's order: Yes. Accurate & Complete Informed Consent: Yes. Inpatient/Outpatient History & Physical on Chart: Yes. If H&P is completed, is and addenduem needed: No; If yes, is the addendum complete: N/A. Visualize and Verify Site with Patient/Guarantor: N/A. Relevant Radiology Images available: Yes. Pre-op teaching completed and patient verbalized understanding. The risks, benefits, and alternatives of sedation and/or procedure were discussed by physician. The patient agrees to continue. Procedure started. [facility] Clinical Fraility Score: 3: Managing Well. Special Procedure Tech Indications: abnormal stress ladonna/ nstemi. Chest Pain Symptom Assessment: Typical Angina Symptoms. Correct patient, site and procedure confirmed by cath team. Current diagnosis: NSTEMI. PERRLA. Strong, equal hand floor trader bilaterally. Lungs clear x 5 lobes. IV Site on Arrival: 20 gauge in the left anticubital. IV Fluids: 0.9% NaCl at KVO. 0 mL infused prior to outside laborer. Pre Procedural Pulses: bilateral dorsalis pedis was 1+. Pre Procedural Pulses: bilateral posterior tibial was 1+. Pre Procedural Pulses: bilateral radial was 2+. Oxygen started at 0liters/min via nasal canula. right groin was prepped with chloroprep then draped in the usual sterile fashion. right radial was prepped with chloroprep then draped in the usual sterile fashion. Physician notified. Baseline sample Acquired. HR: 85 BPM. Physician arrived. Admit Source: In Patient. Physician scrubbed in. Immediate Pre-Procedure Time Out. Correct Patient: Yes; Correct Procedure: Yes; Correct Site: Yes; Correct Patient Position: Yes; Correct Supplies: Yes; Dried Flammable Prep: Yes; Blood Products Available: N/A;. Lidocaine 1% infiltrated to the right radial. Arterial access obtained. Needle out, Pressure held to stop bleeding. Arterial access obtained. Needle out, Pressure held to stop bleeding. Ultrasound requested and used for access. An attempt to gain access to the right radial artery was unsuccessful. Manual pressure was held as needed to stop the bleeding. Lidocaine 1% infiltrated to the right groin. Wire and needle out. Holding pressure to stop bleeding. Wire and needle out. Holding pressure to stop bleeding. Ultasound used for femoral access. Arterial access obtained with micropuncture set. A 5 [place] islander JL4 catheter in over wire. Multiple views taken of left coronary artery. A 5 [place] islander JR4 catheter in over wire. EDP Sample taken: LV 155/-22,10; HR: 90 BPM; SpO2: 96%. Pullback taken: LV 152/-20,11; AO 152/81(110); Mean: 0mmHg, Peak to Peak: 0mmHg, SEP: 10sec/min; HR: 88 BPM; SpO2: 96%. Catheter out. Multiple views taken of right coronary artery. Catheter out. 6 [place] islander XB 3.5 guide catheter was inserted over the wire. Runthrough guidewire was advanced through the guide catheter to lesion in the mid LAD. Inflation number : 1 A AB TREK 2.50X12 RX BALLOON was prepped and advanced across the Mid LAD , then inflated to 0 IFTIKHAR for 0:05 seconds. Inflation number: 2 The AB TREK 2.50X12 RX BALLOON was reinflated across the Mid LAD, to 12 IFTIKHAR for 0:16 seconds. Balloon out. Inflation Number : 3 A MDT R ROSETTA 3.5X18 CLARISSE -Lot Number# [id number] exp date 10/22/2024 was prepped and advanced across the Mid LAD. The stent was deployed at 12 IFTIKHAR for 0:16 seconds. Stent balloon out over wire. Inflation number : 4 A MDT NC EUPHORA RX [id number] BALLOON was prepped and advanced across the Mid LAD , then inflated to 12 IFTIKHAR for 0:17 seconds. Inflation number: 5 The MDT NC EUPHORA RX [id number] BALLOON was reinflated across the Mid LAD, to 8 IFTIKHAR for 0:05 seconds. Balloon out. Results checked. Wire out. ACT drawn. Results 276 seconds. Therapeutic limits - pre-heparin administration 90-150 seconds and monitoring heparin during a vascular procedure >250 seconds. 6 [place] islander JR 4 guide catheter was inserted over the wire. Guide catheter out. Runthrough guidewire was advanced through the guide catheter to lesion in the mid RCA. Inflation number: 1 The AB TREK 2.50X12 RX BALLOON was reinflated across the Mid RCA, to 12 IFTIKHAR for 0:09 seconds. Inflation number: 2 The AB TREK 2.50X12 RX BALLOON was reinflated across the Mid RCA, to 12 IFTIKHAR for 0:07 seconds. Inflation number: 1 The AB TREK 2.50X12 RX BALLOON was reinflated across the Prox RCA, to 12 IFTIKHAR for 0:13 seconds. Balloon out. Stent inserted to lesion in the prox RCA. Inflation Number : 2 A MDT R ROSETTA 3.0X30 CLARISSE -Lot Number# [id number] exp date 11/17/2024 was prepped and advanced across the Prox RCA. The stent was deployed at 12 IFTIKHAR for 0:21 seconds. Stent balloon and wire out. Results checked. Reposition guide catheter. Inflation Number : 3 A MDT R ROSETTA 3.0X22 CLARISSE -Lot Number# [id number] exp date 12/19/2024 was prepped and advanced across the Mid RCA. The stent was deployed at 12 IFTIKHAR for 0:19 seconds. Stent balloon and wire out. Results checked. Inflation number : 4 A MDT NC EUPHORA RX [id number] BALLOON was prepped and advanced across the Mid RCA , then inflated to 12 IFTIKHAR for 0:26 seconds. Balloon out. Results checked. Inflation number: 6 The MDT NC EUPHORA RX [id number] BALLOON was reinflated across the Mid LAD, to 6 IFTIKHAR for 0:05 seconds. Balloon out. Guidecatherter reseated. Intact ballon and wire out. 3.07i84DS NC balloon. Guide catheter out. ACT drawn. Results 277 seconds. Therapeutic limits - pre-heparin administration 90-150 seconds and monitoring heparin during a vascular procedure >250 seconds. A Suture was successful obtaining hemostatsis at the Right Femoral artery insertion site. Post Procedure: Pulses reassessed and unchanged. PERRLA. Strong, equal hand floor trader bilaterally. No VTE prophylaxis required. Post-op diagnosis: Severe mid LAD stenosis. PCI with 2 stents. Medication's Wasted: Nitro = 50 mg. Complications: none. Estimated blood loss: 5mL-10mL. Responsiveness - Normal response to verbal stimuli; alert and oriented, PERRLA. Airway - Unaffected, no intervention required; spontaneous ventilation. Circulation: W/N/L, pulses unchanged. Total IV fluids: 110 mL. Nausea/Vomiting: No. Medication's Wasted: Heparin = 1000 units. Procedure completed. Patient transferred by bed to CPRU. Vital chart was stopped. Access Site Site: Right Femoral artery Sheath Size: 6 Fr Hemostasis Method: Suture Hemostasis Success: Successful Procedure Medications Start: 12:13 PM Stop: 12:13 PM Medication: Versed Amount: 1 mg Route: I.V. Start: 12:13 PM Stop: 12:13 PM Medication: Fentanyl Amount: 50 mcg Route: I.V. Start: 12:17 PM Stop: 12:17 PM Medication: Versed Amount: 1 mg Route: I.V. Start: 12:28 PM Stop: 12:28 PM Medication: Fentanyl Amount: 50 mcg Route: I.V. Start: 12:29 PM Stop: 12:29 PM Medication: Versed Amount: 1 mg Route: I.V. Start: 12:54 PM Stop: 12:54 PM Medication: Heparin Amount: 8000 units Route: I.V. Start: 12:56 PM Stop: 12:56 PM Medication: Versed Amount: 1 mg Route: I.V. Start: 1:00 PM Stop: 1:00 PM Medication: Heparin Amount: 2000 units Route: I.V. Start: 1:07 PM Stop: 1:07 PM Medication: Brilinta Amount: 180 mg Route: P.O. Start: 1:10 PM Stop: 1:10 PM Medication: Versed Amount: 1 mg Route: I.V. Start: 1:11 PM Stop: 1:11 PM Medication: Fentanyl Amount: 50 mcg Route: I.V. Start: 1:12 PM Stop: 1:12 PM Medication: Fentanyl Amount: 25 mcg Route: I.V. Start: 1:14 PM Stop: 1:14 PM Medication: Heparin Amount: 1000 units Route: I.V. Start: 1:24 PM Stop: 1:24 PM Medication: Heparin Amount: 1000 units Route: I.V. Start: 1:29 PM Stop: 1:29 PM Medication: Heparin Amount: 1000 units Route: I.V. Start: 1:31 PM Stop: 1:31 PM Medication: Versed 1 mg and Fentanyl 25 mcg Amount: 1 Route: I.V. I, the attending physician, have reviewed and verified all procedure medications. Yes, all medications given per verbal order History/Risk Factors Hypertension: Yes Dyslipidemia: Yes Peripheral Arterial Disease (PAD): No Myocardial Infarction (NE): No Obesity: No Tobacco Use: Current/Recent(w/in 1 year) Prior Interventions PCI: No Valve Surgery: No Report Signatures Finalized by Frederick Sharma MD on 10/01/2022 01:27 PM
[2022-09-24] MEDS: atorvastatin 40 mg Tablet PO (10:01)
[2022-09-24] MEDS: carvedilol 3.125 mg Tablet PO ×2 (10:01→17:28)
[2022-09-24] MEDS: aspirin 81 mg Chew Tablet 324 MG PO (10:02)
[2022-09-24] MEDS: amlodipine 5 mg Tablet PO (10:02)
[2022-09-24] MEDS: pantoprazole 40 mg SDV IVP (10:03)
[2022-09-24] MEDS: sodium chloride 0.9% 1,000 ML 50 ML IV (10:05)
[2022-09-24] MEDS: diphenhydrAMINE 50 mg Capsule PO (11:00)
[2022-09-24] MEDS: sodium chloride 0.9% 1,000 ML 75 ML IV (11:02)
[2022-09-24 11:41] LABS: Glucose Point of Care 128 mg/dL (70-110)
--- NOTE | 2022-09-24 11:43 | PM.PN ---
Subjective Subjective: Seen this morning. She remains chest pain-free. She will be going for angiogram today. Vitals/I&O/Wt Last Vital Signs Temp 97.7 F 09/24/22 07:30 Pulse 87 09/24/22 07:30 Resp 14 09/24/22 07:30 BP 92/65 09/24/22 07:30 Pulse Ox 96 09/24/22 07:30 O2 Del Method 09/24/22 07:30 09/23/22 09/24/22 09/24/22 22:59 06:59 14:59 Intake Total 1000 / 1000 Balance 1000 / 1000 Weight last 48 hrs Weight 85.729 kg Physical Exam Narrative: Gen: obese lady in bed, NAD HEENT/ Neck: EOMI, RS:CTAB/L, No wheezes, CVS:S1, S2 regular, No murmur PA: soft, NT, ND Ext: warm, good peripheral pulses TRANSPLANT NURSE PRACTITIONER:AAOx3, Data 09/23/22 21:07 09/23/22 21:07 A&P Assessment and plan (1) Obesity: (2) History of type 2 diabetes mellitus: (3) History of essential hypertension: (4) History of hyperlipidemia: (5) NSTEMI (non-ST elevated myocardial infarction): (6) Positive cardiac stress test: Plan #NSTEMI #Hypertension #Diabetes mellitus 1. Abnormal myocardial perfusion imaging with large sized area of ischemia is ?noted in the left circumflex artery. ?2. Medium sized prior infarct with maren-infarct ischemia is seen in the RCA and ?LAD terriory. ?3. LV systolic function is normal echo LV systolic function is normal with EF 55 to 60%. ?Grade 1 diastolic dysfunction ?Mild tricuspid regurgitation ?No comparison studies are available -N.p.o. since midnight -Has received therapeutic Lovenox -Continue aspirin, statin, beta-daron -Patient to go for angiogram today. Cardiology is on board. -Low-dose sliding scale -Full code -Lovenox for DVT prophylaxis Attestations Medical Necessity Statement*: Patient requires hospitalization for chest pain, NSTEMI, inpatient, greater than 2 midnights Coding Level of Care Code Acute Code for Ch[facility] Fwd Diagnoses Obesity E66.9 History of type 2 diabetes mellitus Z86.39 History of essential hypertension Z86.79 History of hyperlipidemia Z86.39 NSTEMI (non-ST elevated myocardial infarction) I21.4 Positive cardiac stress test R94.39
--- NOTE | 2022-09-24 12:05 | PC.NURSE ---
to cardiac yard labor supervisor via w/c at this time
--- NOTE | 2022-09-24 12:14 | W.PM.OPSUD ---
Surgery/Procedure H&P Update DATE OF PROCEDURE: September 24, 2022 DATE H&P PERFORMED: 09/24/22 H&P UPDATE INFORMATION: I have reviewed H&P completed within last 30 days, I have examined patient prior to procedure and No changes to prior documentation PREOP DIAGNOSIS: NSTEMI PRIMARY INDICATION FOR PROCEDURE: NSTEMI PLANNED PROCEDURE: Left heart cath with possible percutaneous coronary intervention. PATIENT REASSESSED PRIOR TO SEDATION, WITH NO CHANGE NOTED: Yes PHYSICAL EXAM: alert, oriented x 3, clear to auscultation bilaterally and regular rate & rhythm AIRWAY EVAL/ANESTHESIA PLAN: ASA III, Local Anesthesia, Risks, benefits & alternatives of sedation and/or procedure discussed and Patient agrees to continue as planned ADDITIONAL INFORMATION: Moderate sedation
--- NOTE | 2022-09-24 15:12 | PC.NURSE ---
received from cardiac dental lab technician via stretcher at 1420.report received.pt is alert and awake.sr on monitor.right groin with femoral sheath intact to pressurized system.drsg is dry and intact.no hematoma noted.right leg is warm to touch and with brisk capillary refill.palpable dp pulse noted.pt instructed in activity restrictions s/p femoral artery procedure...and instructed to notify staff for any bleeding ,pain,numbness,sob or for any concerns at all.pt verb understanding of instructions
--- NOTE | 2022-09-24 16:30 | PM.MISC ---
Miscellaneous Note Purpose of Documentation: Brief procedure note Note: Left main artery: Patent LAD: Has severe mid LAD 90% stenosis LCX: Ostially occluded. 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 During the procedure, we again had discussion and she did not want to have CABG and proceed with PCI. PCI of mid LAD was performed with CLARISSE X1. And RCA was treated with CLARISSE X 2.
[2022-09-24 17:04] LABS: Glucose Point of Care 174 mg/dL (70-110)
[2022-09-24 17:24] LABS: Partial Thromboplastin Time 54.9 SECONDS (23.9-36.7)
[2022-09-24] MEDS: insulin lispro 100 unit/1 mL SUBCUT (17:27)
[2022-09-24 19:32] LABS: Partial Thromboplastin Time 33.6 SECONDS (23.9-36.7)
[2022-09-24] MEDS: morphine 4 mg/mL SDV 1 mL 1 MG IVP (20:11)
[2022-09-24 20:34] LABS: Glucose Point of Care 123 mg/dL (70-110)
[2022-09-25] VITALS (18 sets, daily range): BP systolic 101–154; BP diastolic 60–105; PULSE 74–89; RESP 12–20; TEMP 36.7–36.9; O2SAT 93–97
--- NOTE | 2022-09-25 02:40 | PC.NURSE ---
Report received, PTT scheduled at 1900 drawn, and resulted around 1999. PTT at that time WNR for sheath removal. JANAE Lloyd at bedside and removed sheath. Pressure held 25 minutes without bleeding or hematoma. Distal pulses remained intact. Q15 minute checks performed, and site remained free of hematoma or bleeding. Patient remained supine with leg straight throughout time. At 0230, patient now sitting up at bedside. Tolerating well.
[2022-09-25 04:02] LABS: Basophils # 0.1 10^3/uL (0.0-0.1); Basophils % 0.6 %; Eosinophils # 0.4 10^3/uL (0.0-0.8); Eosinophils % 2.7 %; Hematocrit 48.1 % (37.0-47.0); Hemoglobin 15.2 g/dL (11.5-15.3); Lymphocytes # 3.8 10^3/uL (0.8-4.8); Lymphocytes % 26.8 %; Mean Corpuscular HGB Conc 31.6 g/dL (30.0-36.0); Mean Corpuscular Volume 88.7 fl (81-99); Monocytes # 1.3 10^3/uL (0.2-0.9); Monocytes % 9.5 %; Neutrophils # 8.44 10^3/uL (1.8-7.7); Nucleated Red Blood Cells % 0 %; Platelet Count 338 10^3/cmm (130-400); Red Blood Count 5.42 10^6/uL (4.1-5.3); Red Cell Distribution Width 13.9 % (12.1-15.1)
[2022-09-25 04:34] LABS: Anion Gap 15.6 (5-19); Blood Urea Nitrogen 17 mg/dL (6-20); Calcium 8.8 mg/dL (8.5-10.5); Carbon Dioxide 23 mmol/L (22-29); Chloride 105 mmol/L (98-107); Glomerular Filtration Rate 106.7 mL/min (90-130); Glucose 103 mg/dL (65-115); Magnesium 2.1 mg/dL (1.7-2.3); Osmolality Calculated 292 mOsm/kg (285-295); Potassium 3.6 mmol/L (3.5-5.1); Sodium 140 mmol/L (136-145)
[2022-09-25] MEDS: carvedilol 3.125 mg Tablet PO (06:17)
[2022-09-25 06:23] LABS: Glucose Point of Care 114 mg/dL (70-110)
--- NOTE | 2022-09-25 07:44 | PM.PN ---
Vitals/I&O/Wt Last Vital Signs Temp 98.1 F 09/25/22 07:30 Pulse 76 09/25/22 07:30 Resp 14 09/25/22 07:30 BP 120/84 09/25/22 07:30 Pulse Ox 93 09/25/22 07:30 O2 Del Method 09/25/22 04:00 09/24/22 09/25/22 09/25/22 22:59 06:59 14:59 Intake Total 1055 / 2055 325 / 2380 Output Total 350 / 350 Balance 705 / 1705 325 / 2030 Weight last 48 hrs Weight 85.729 kg Data 09/25/22 02:12 09/25/22 02:12 Coding Level of Care Code Acute Code for Chg Fwd
[2022-09-25] MEDS: pantoprazole 40 mg SDV IVP (08:46)
[2022-09-25] MEDS: nicotine 21 mg Patch 1 PATCH TRANSDERMA (08:48)
[2022-09-25] MEDS: amlodipine 5 mg Tablet PO (08:48)
[2022-09-25] MEDS: aspirin 81 mg Chew Tablet 324 MG PO (08:48)
[2022-09-25] MEDS: ticagrelor 90 mg Tablet PO (08:48)
[2022-09-25] MEDS: atorvastatin 40 mg Tablet PO (08:48)
--- NOTE | 2022-09-25 09:27 | PM.PN ---
Subjective Subjective: s/p LHC yesterday via R femoral approach. Medications: Reviewed: Yes Vitals/I&O/Wt Last Vital Signs Temp 98.1 F 09/25/22 07:30 Pulse 76 09/25/22 07:30 Resp 14 09/25/22 07:30 BP 120/84 09/25/22 07:30 Pulse Ox 93 09/25/22 07:30 O2 Del Method 09/25/22 04:00 09/24/22 09/25/22 09/25/22 22:59 06:59 14:59 Intake Total 1055 / 2055 325 / 2380 1240 / 1240 Output Total 350 / 350 Balance 705 / 1705 325 / 2030 1240 / 1240 Weight last 48 hrs Weight 189 lb Physical Exam Narrative: Gen: obese lady in bed, NAD HEENT/ Neck: EOMI, RS:CTAB/L, No wheezes, CVS:S1, S2 regular, No murmur PA: soft, NT, ND Ext: warm, good peripheral pulses. 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 Preserved LV function in echo [facility] with patent Left main artery, LAD with severe mid LAD 90% stenosis, LCX is Ostially occluded. SAT TUTOR and RCA with severe proximal and mid RCA stenosis. Patient declined CABG and PCI of mid LAD was performed with CLARISSE X1 and RCA was treated with CLARISSE X 2. -continue ASA, Brilinta, statin and coreg on discharge -f/u with Lili Kim NP in 1 week for site check and follow up labs -Cardiac Rehab discussed and patient expressed desire to participate. (2) Positive cardiac stress test: (3) History of essential hypertension: (4) History of type 2 diabetes mellitus: (5) History of hyperlipidemia: Plan Active smoker: seems motivated to quit Thank you for allowing me to see the patient. Patient seen today via Telehealth by agreement and consent of patient. Telehealth technology used during the visit include video and audio. Interview and Exam was conducted with the help of bedside RN. Time spent in encounter 20 minutes with >50% time spent face to face. Attestations Medical Necessity Statement*: stable for discharge Coding Level of Care Code Acute Code for Chg Fwd Diagnoses NSTEMI (non-ST elevated myocardial infarction) I21.4 Positive cardiac stress test R94.39 History of essential hypertension Z86.79 History of type 2 diabetes mellitus Z86.39 History of hyperlipidemia Z86.39
--- NOTE | 2022-09-25 09:57 | P.DS_ITS ---
Discharge Providers Date of Admission: 09/24/22 02:43 Date of Discharge: September 25, 2022 Attending Provider at Admission: Juan Carlos Greene MD Attending Provider at Discharge: Sahara Ulloa MD Primary Care Provider: Myriam Bridges Diagnoses at Discharge Discharge Diagnosis (1) NSTEMI (non-ST elevated myocardial infarction): Status: Acute (2) Positive cardiac stress test: Status: Resolved (3) History of essential hypertension: Status: Acute (4) History of type 2 diabetes mellitus: Status: Acute (5) History of hyperlipidemia: Status: Acute Reason for Visit Reason for Visit: Stress test Back, Blockage Brief History: As per Dr. Greene, Varun Villatoro is a 47 year old female with a past medical history of hype rtension, hyperlipidemia, type 2 diabetes mellitus, obesity, who presents [facility] as she left AGAINST MEDICAL ADVICE and she was called back to the hospital because of a positive stress test.? She tells me that she was just upset about waiting here in the hospital, not having her questions answered.? When she got home she did not have any chest pain, no palpitations. Hospital Course Hospital Course Patient was initially admitted for chest pain and had a stress test done but signed out AMA and then she was called by myself the same day with her results and advised to come back to the ER. Patient came back to the ER and was admitted again and went for cardiac angiogram the next morning. She had left main artery patent, LAD severe mid LAD 90% stenosis, left circumflex ostially occluded, complete total occlusion, RCA severe proximal and mid RCA disease. Discussion was done with the patient regarding CABG but she does not want to proceed with that and wanted to have a PCI done. PCI of mid LAD was performed with drug-eluting stent x1 and RCA was treated with drug-eluting stent x2. Patient was placed on aspirin Brilinta, atorvastatin, Coreg and discharged home in stable condition to follow-up with cardiology and primary care doctor as an outpatient. All questions were answered. Patient was counseled to stop smoking. She was also prescribed nicotine patches at discharge. Physical Exam Narrative: Gen: obese lady in bed, NAD HEENT/ Neck: EOMI, RS:CTAB/L, No wheezes, CVS:S1, S2 regular, No murmur PA: soft, NT, ND Ext: warm, good peripheral pulses. 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 Laboratory Results WBC 14.0 10^3/uL (4.0-10.0) H 09/25/22 02:12 RBC 5.42 10^6/uL (4.1-5.3) H 09/25/22 02:12 Hgb 15.2 g/dL (11.5-15.3) 09/25/22 02:12 Hct 48.1 % (37.0-47.0) H 09/25/22 02:12 MCV 88.7 fl (81-99) 09/25/22 02:12 MCH 28.0 pg (28.0-34.0) 09/25/22 02:12 MCHC 31.6 g/dL (30.0-36.0) D 09/25/22 02:12 RDW 13.9 % (12.1-15.1) 09/25/22 02:12 Plt Count 338 10^3/cmm (130-400) 09/25/22 02:12 MPV 9.0 fL (7.4-10.4) 09/25/22 02:12 Neut % (Auto) 60.0 % 09/25/22 02:12 Lymph % (Auto) 26.8 % 09/25/22 02:12 [place] % (Auto) 9.5 % 09/25/22 02:12 Eos % (Auto) 2.7 % 09/25/22 02:12 Baso % (Auto) 0.6 % 09/25/22 02:12 Neut # (Auto) 8.44 10^3/uL (1.8-7.7) H 09/25/22 02:12 Lymph # (Auto) 3.8 10^3/uL (0.8-4.8) 09/25/22 02:12 [place] # (Auto) 1.3 10^3/uL (0.2-0.9) H 09/25/22 02:12 Eos # (Auto) 0.4 10^3/uL (0.0-0.8) 09/25/22 02:12 Baso # (Auto) 0.1 10^3/uL (0.0-0.1) 09/25/22 02:12 Nucleated RBC % (auto) 0 % 09/25/22 02:12 Nucleated RBCs # 0.0 /100WBC 09/25/22 02:12 APTT 33.6 SECONDS (23.9-36.7) 09/24/22 18:59 Sodium 140 mmol/L (136-145) 09/25/22 02:12 Potassium 3.6 mmol/L (3.5-5.1) 09/25/22 02:12 Chloride 105 mmol/L (98-107) 09/25/22 02:12 Carbon Dioxide 23 mmol/L (22-29) 09/25/22 02:12 Anion Gap 15.6 (5-19) 09/25/22 02:12 BUN 17 mg/dL (6-20) 09/25/22 02:12 Creatinine 0.6 mg/dL (0.5-0.9) 09/25/22 02:12 GFR Calculation 106.7 mL/min (90-130) 09/25/22 02:12 Glucose 103 mg/dL (65-115) 09/25/22 02:12 POC Glucose 114 mg/dL (70-110) H 09/25/22 06:16 Calculated Osmolality 292 mOsm/kg (285-295) 09/25/22 02:12 Calcium 8.8 mg/dL (8.5-10.5) 09/25/22 02:12 Magnesium 2.1 mg/dL (1.7-2.3) 09/25/22 02:12 Total Bilirubin 0.2 mg/dL (0.15-1.2) 09/23/22 21:07 AST 16 U/L (0-32) 09/23/22 21:07 ALT 23 U/L (0-33) 09/23/22 21:07 Alkaline Phosphatase 62 U/L (35-105) 09/23/22 21:07 Troponin T Baseline 66 ng/L (0-10) H 09/23/22 21:07 Troponin T 120 Minute 57.89 ng/L (0-10) H 09/23/22 23:20 Delta Troponin T -8.11 ABS# (0-10) L 09/23/22 23:20 Troponin T Hi Sens 6Hr 66.33 ng/L (0-10) H 09/24/22 05:04 Troponin T Hi Sens 6Hr Delta 0.33 ng/L (0-12) 09/24/22 05:04 Total Protein 8.0 g/dL (6.6-8.7) 09/23/22 21:07 Albumin 4.4 g/dL (3.5-5.2) 09/23/22 21:07 Globulin 3.6 g/dL (1.3-4.6) 09/23/22 21:07 Vitals Last Vital Signs Temp 98.1 F 09/25/22 07:30 Pulse 76 09/25/22 07:30 Resp 14 09/25/22 07:30 BP 120/84 09/25/22 07:30 Pulse Ox 93 09/25/22 07:30 O2 Del Method 09/25/22 04:00 Discharge Plan Discharge Patient Disposition: Home Condition: Stable Prescriptions: New nicotine 21 mg/24 hr Patch 24 Hour 1 patch transdermal DAILY Qty: 14 0RF Continued carvedilol 3.125 mg tablet 3.125 mg PO Q12H 30 Days Qty: 60 0RF Brilinta 90 mg tablet 90 mg PO BID 30 Days Qty: 60 0RF amlodipine 5 mg Tablet 5 mg PO DAILY Fish Oil 100-160-1,000 mg Capsule 1 cap PO DAILY aspirin 81 mg Tablet,Chewable 81 mg PO DAILY Held metformin 1,000 mg Tablet 1,000 mg PO BID Hold Instructions: Resume on 09/27/22. Discontinued fenofibrate nanocrystallized 145 mg Tablet 145 mg PO DAILY naproxen sodium [Aleve] 220 mg Tablet 220 mg PO BID PRN (Reason: Pain) atorvastatin 20 mg tablet 20 mg PO DAILY losartan-hydrochlorothiazide 50-12.5 mg tablet 1 tab PO DAILY propranolol 20 mg tablet See Rx Instructions .ROUTE .COMPLEX Rx Instructions: 40 MG IN THE AM AND 20 MG IN THE AFTERNOON NEEDED FOR ANXIETY No Action atorvastatin 40 mg tablet 40 mg PO DAILY 30 Days Qty: 30 0RF Discharge Orders: Discharge Order (Routine); Ordered 09/25/22 Ordered By: Sahara Ulloa Referrals: Myriam Bridges FNP [Primary Care Provider] - 4-7 days (Follow up appointment made With Vicky Lee at [facility] on Thursday09/30/22 at 10AM, if you have any questions please call [phone]) Lili Kim FNP [Nurse Practitioner] - 1 week (Follow up appointment scheduled with Lili Kim on Thursday10/06/22 at 9:45am, if you have any questions please call [phone]) Afua Temple MD [Physician] - 1 month Discharge Diet: Cardiac Discharge Activity: Limit activity as instructed Patient Instructions: Nicotine (Absorbed through the skin), Atorvastatin (By mouth) (Lipitor), Carvedilol (By mouth), Ticagrelor (By mouth) (Brilinta), DASH Eating Plan (GEN), Opioid Safety, Post Angiogram Home Care Instructions Activity Restrictions/Additional Instructions: Do not lift anything more than 5 lbs for 1 week. Keep the site dry and clean No tub bathing or swimming. May shower. Take medications as prescribed and follow up as scheduled. Discharge Attestations Time Spent in Discharge Care*: greater than 30 min Quality Metrics Clinical Quality Measures [ No reported AMI, CVA or VTE this stay] Coding Level of Care Code Established Pt Acute Chg FW DC note Patient Type Established Medical Decision Making Straight Forward Diagnoses NSTEMI (non-ST elevated myocardial infarction) I21.4 Positive cardiac stress test R94.39 History of essential hypertension Z86.79 History of type 2 diabetes mellitus Z86.39 History of hyperlipidemia Z86.39
[2022-09-25 10:23] LABS: Chol HDL Ratio 7.52 mg/dL (0.0-4.40); Cholesterol 188 mg/dL (0-200); HDL Cholesterol 25 mg/dL (60-100); LDL Cholesterol Calculated 118 mg/dL (50-129); LDL Cholesterol Direct 126 mg/dL (0-100); LDL HDL Ratio 4.72 RATIO (0.00-3.22); Triglycerides 223 mg/dL (0-150)
--- NOTE | 2022-09-25 12:22 | PC.NURSE ---
medications provided by [facility] to beds program.discharge instructions given and explained.pt verb understanding of instructions.discharged ambulatory to exit.son to drive pt home.
== END 2022-09-25 12:00 | disposition home or self-care (01) | DRG 247 ==
LOC: ER 22:41 → CSU 09-24 06:30
PROVIDERS: Internal Medicine; Internal Medicine Cardiovascular Disease; Admitting Provider Family Medicine; Emergency Provider Emergency Medicine; PCP Nurse Practitioner Family; Visit Provider Internal Medicine
PROC: B2111ZZ Fluoroscopy of Multiple Coronary Arteries using Low Osmolar Contrast (ICD-10-PCS; principal; 2022-09-24 13:30)
PROC: B2111ZZ Fluoroscopy of Multiple Coronary Arteries using Low Osmolar Contrast (ICD-10-PCS; 2022-09-24 13:30)
DX: I21.4 Non-ST elevation (NSTEMI) myocardial infarction (principal); I10 Essential (primary) hypertension; E78.5 Hyperlipidemia, unspecified; I25.10 Atherosclerotic heart disease of native coronary artery without angina pectoris; E11.9 Type 2 diabetes mellitus without complications; E66.9 Obesity, unspecified; Z68.34 Body mass index [BMI] 34.0-34.9, adult; F17.200 Nicotine dependence, unspecified, uncomplicated; Z79.82 Long term (current) use of aspirin
CPT/HCPCS: 36415; 36416; 71045; 80048; 80053; 80061; 82962; 83721; 83735; 84484; 85025; 85347; 85730; 93005; 93458; 96372; 99152; 99153; 99285; C1725; C1769; C1874; C1887; C1894; C9113; C9600; C9601; J1644; J1650; J1815; J2250; J2270; J3010; J3490; J7030; Q0163; Q9967

== ENCOUNTER 2022-10-15 11:05 | Outpatient (RCR) | payer MEDICAID, SELFPAY | END 2022-11-04 23:59 | disposition home or self-care (01) | LOC: CR 11:05 | PROVIDERS: PCP Nurse Practitioner Family; Visit Provider Internal Medicine | DX: Z98.61 Coronary angioplasty status (principal) | CPT/HCPCS: 93798 ==

== ENCOUNTER → 2022-10-21 11:22 | Outpatient (BNVA) | payer MEDICAID, SELFPAY | PROVIDERS: PCP Nurse Practitioner Family; Visit Provider Nurse Practitioner Family | DX: I25.10 Atherosclerotic heart disease of native coronary artery without angina pectoris (principal) | CPT/HCPCS: 36415; 80048 ==

== ENCOUNTER 2022-11-05 09:02 | Outpatient (RCR) | payer MEDICAID, SELFPAY | END 2022-12-05 23:59 | disposition home or self-care (01) | LOC: CR 09:02 | PROVIDERS: PCP Nurse Practitioner Family; Visit Provider Internal Medicine | DX: I25.10 Atherosclerotic heart disease of native coronary artery without angina pectoris (principal) | CPT/HCPCS: 93798 ==

== ENCOUNTER 2022-11-26 11:11 | Outpatient (CLI) | payer MEDICAID, SELFPAY ==
--- NOTE | 2022-11-26 11:47 | XR_ITS ---
WS: [id number] EXAMINATION: XR shoulder RT min 2V* [id number] REASON FOR EXAM: R SHOULDER PAIN COMPARISON: 09/22/2022 ORDER DATE: 11/26/2022 12:14 PM TECHNIQUE: 3 views of the right shoulder were obtained. X-RAY FINDINGS: No fractures or dislocations. Normal motion of the shoulder with internal/external rotation. No degenerative changes. Acromioclavicular joint appears unremarkable. Limited visualization of the adjacent hemithorax is unremarkable. XR/XR shoulder RT min 2V* [id number] IMPRESSION: No fractures or dislocations of the right shoulder.
== END 2022-11-26 11:12 | disposition home or self-care (01) ==
LOC: RAD 11:29
PROVIDERS: PCP Nurse Practitioner Family; Visit Provider Family Medicine
DX: M25.511 Pain in right shoulder (principal)
CPT/HCPCS: 73030

== ENCOUNTER 2022-12-08 09:52 | Outpatient (RCR) | payer MEDICAID, SELFPAY | END 2023-01-04 23:59 | disposition home or self-care (01) | LOC: CR 09:52 | PROVIDERS: PCP Nurse Practitioner Family; Visit Provider Internal Medicine | DX: Z98.61 Coronary angioplasty status (principal) | CPT/HCPCS: 93798 ==

== ENCOUNTER 2023-01-05 13:46 | Outpatient (RCR) | payer MEDICAID, SELFPAY | END 2023-02-04 23:59 | disposition home or self-care (01) | LOC: CR 13:46 | PROVIDERS: Family Provider Nurse Practitioner Family; PCP Nurse Practitioner Family; Referring Provider Internal Medicine; Visit Provider Internal Medicine | DX: Z98.61 Coronary angioplasty status (principal) | CPT/HCPCS: 93798 ==

== ENCOUNTER 2023-01-13 14:51 | Outpatient (CLI) | payer MEDICAID, SELFPAY ==
--- NOTE | 2023-01-13 15:43 | MR_ITS ---
WS: [id number] MRI RIGHT SHOULDER HISTORY: PAIN IN RIGHT SHOULDER COMPARISON: Shoulder radiograph 11/26/2022 TECHNIQUE: Multiplanar sequences of the shoulder joint are submitted. Moderate AC joint arthropathy. Mild bony hypertrophy increased T2 signal along the AC ligament. No si gnificant subacromial impingement. There is a very small amount of fluid in the subdeltoid bursa. No os acromion. Biceps tendon is in normal position with a small amount of increased fluid within the te ndon sheath. Split tear involving the biceps tendon in the bicipital groove. Marked abnormal signal with thickening involving the distal 3 cm of the supraspinatus tendon. There i s an associated moderate-sized supraspinatus tendon tear extending to the articular surface. Intersti tial extension of fluid along the tendon. Very mild atrophy of the supraspinatus muscle. There is flu id extending along the distal infraspinatus tendon which is typically seen with an interstitial tear. There is probably a small insertion site tear of the infraspinatus tendon where it overlaps the supr aspinatus fibers. No infraspinatus or subscapularis atrophy. Marked thickening and abnormal signal in the distal subscapularis tendon. Signal is intermediate. The re is a intermediate signal focus measuring 6 mm which appears embedded within the distal tendon but also very closely associated with the biceps tendon. This may be a calcific deposit associated with t he biceps tendon or subscapularis tendon. Contiguous with the biceps tendon. Mild subluxation of the humeral head from the glenoid. Intrasubstance degeneration of the labrum but no tear is confirmed. Small joint effusion. MR/MR shoulder RT wo con* [id number] IMPRESSION: 1. Moderate AC joint arthritis. 2. Split tear biceps tendon in the bicipital groove. Just proximal to the bici pital groove there is abnormal signal within the biceps tendon or subscapularis tendon. Biceps tendon may be invaginating into the subscapularis tendon or mar ked tendinopathy. Direct visualization may be necessary to evaluate the biceps tendon and subscapularis tendon. Subscapularis tendinopathy with possible calci fic tendinitis also within the differential. 3. Moderate tendinopathy in the distal supraspinatus with an associated articu lar surface partial tendon tear. 4. Interstitial fluid along the infraspinatus tendon. Tiny insertion site tear likely.
== END 2023-01-13 14:52 | disposition home or self-care (01) ==
PROVIDERS: Family Provider Nurse Practitioner Family; PCP Nurse Practitioner Family; Visit Provider Nurse Practitioner Family
DX: M19.011 Primary osteoarthritis, right shoulder (principal); S46.211A Strain of muscle, fascia and tendon of other parts of biceps, right arm, initial encounter; X58.XXXA Exposure to other specified factors, initial encounter
CPT/HCPCS: 73221

== ENCOUNTER → 2023-01-26 14:10 | Outpatient (BNVA) | payer MEDICAID, SELFPAY | PROVIDERS: Referring Provider Nurse Practitioner Family; Visit Provider Specialist | DX: M19.011 Primary osteoarthritis, right shoulder (principal); M67.911 Unspecified disorder of synovium and tendon, right shoulder | CPT/HCPCS: 73030 ==

== ENCOUNTER 2023-01-29 06:00 | Outpatient (RCR) | payer MEDICAID, SELFPAY | END 2023-02-04 23:59 | disposition home or self-care (01) | LOC: SPT 06:00 | PROVIDERS: Visit Provider Nurse Practitioner Family | DX: M25.511 Pain in right shoulder (principal); M54.2 Cervicalgia; G89.29 Other chronic pain | CPT/HCPCS: 97161 ==

== ENCOUNTER 2023-02-05 06:00 | Outpatient (RCR) | payer MEDICAID, SELFPAY | END 2023-03-06 23:59 | disposition home or self-care (01) | LOC: SPT 06:00 | PROVIDERS: Family Provider Nurse Practitioner Family; PCP Nurse Practitioner Family; Visit Provider Nurse Practitioner Family | DX: M54.2 Cervicalgia (principal); M25.511 Pain in right shoulder; G89.29 Other chronic pain | CPT/HCPCS: 97110 ==

== ENCOUNTER 2023-03-07 06:00 | Outpatient (RCR) | payer MEDICAID, SELFPAY | END 2023-04-06 23:59 | disposition home or self-care (01) | LOC: SPT 06:00 | PROVIDERS: Family Provider Nurse Practitioner Family; PCP Nurse Practitioner Family; Visit Provider Nurse Practitioner Family | DX: M54.2 Cervicalgia (principal); M25.511 Pain in right shoulder; G89.29 Other chronic pain | CPT/HCPCS: 97110 ==

== ENCOUNTER 2023-04-07 06:00 | Outpatient (RCR) | payer MEDICAID, SELFPAY | END 2023-05-07 23:59 | disposition home or self-care (01) | LOC: SPT 06:00 | PROVIDERS: Family Provider Nurse Practitioner Family; PCP Nurse Practitioner Family; Visit Provider Nurse Practitioner Family | DX: M54.2 Cervicalgia (principal); M25.511 Pain in right shoulder; G89.29 Other chronic pain | CPT/HCPCS: 97110 ==

== ENCOUNTER 2024-09-19 15:24 | Outpatient (CLI) | payer MEDICAID, SELFPAY ==
--- NOTE | 2024-09-19 16:02 | XR_ITS ---
WS: [id number] XR wrist LT min 3V* [id number] REASON FOR EXAM: wrist pain left FINDINGS: No fracture or focal bone lesion. Radiocarpal and intercarpal joint spaces are intact and well preserved. No soft tissue abnormality. XR/XR wrist LT min 3V* [id number] IMPRESSION: No significant abnormality.
== END 2024-09-19 15:25 | disposition home or self-care (01) ==
PROVIDERS: Family Provider Nurse Practitioner Family; PCP Nurse Practitioner Family; Visit Provider Nurse Practitioner Family
DX: M25.532 Pain in left wrist (principal)
CPT/HCPCS: 73110

== ENCOUNTER → 2024-10-19 10:28 | Outpatient (BNVA) | payer MEDICAID, SELFPAY | PROVIDERS: Family Provider Nurse Practitioner Family; PCP Nurse Practitioner Family; Visit Provider Specialist | DX: M65.4 Radial styloid tenosynovitis [de Quervain] (principal); M25.532 Pain in left wrist; Z46.89 Encounter for fitting and adjustment of other specified devices | CPT/HCPCS: 73110 ==

== ENCOUNTER 2025-05-02 14:26 | Observation (INO) | payer MEDICAID, SELFPAY ==
--- OUTSIDE RECORDS SUMMARY | 2006-01-16 05:25 | XMS_ITS | Continuity of Care Document ---
Author Organization [facility] Address [address] [place] [phone] Phone Care Team Providers Care Senior Security Engineer Name Role Phone DAXA DINH Unavailable Unavailable Medications Medication Instructions Dosage Effective Dates (start - stop) Status Comments Vicodin 5 mg-500 mg Tab Take 1 tablet by mouth every 4-6 hrs prn - Active Advance Directives Directive Yes / No Effective Date File Name No Information Encounters Encounter Description Practice Location Reason(s) For Visit Diagnoses Date Provider Providers Copied on Encounter [facility], [address] [place] [address], [address] [place] [address], tel:[phone] [facility] No Information 2-200 6 SANDRO MITTAL. [address] [place] [address], [address] [place] [address], . tel:[phone] [facility], [address] [place] [address], [address] [place] [address], tel:[phone] [facility] No Information 4-200 6 SANDRO MITTAL. [address] [place] [address], [address] [place] [address], . tel:[phone] Family History Family Member Type Diagnosis Age At Onset No Information Payers Payer name Insurance type Covered constitution party ID Rakan rea(s) [employer] [id number] Social History Type Description Quantity Date Captured Comments Sex Female Smoking Status No Information Chief Complaint And Reason For Visit No Information Reason For Referral Reason For Referral No Information History Of Present Illness Encounter Date Complaint History Of Prese nt Illness No Information Functional Status Date Functional Assessmen t No Information Instructions Date Instruction Additional Infor mation No Information Assessments Type Assessment Date No Information Patient Care Teams Name Effective Dates (start - stop) Status Members No Information
[2025-05-02] VITALS (8 sets, daily range): BP systolic 136–165; BP diastolic 70–111; PULSE 91–110; RESP 16–23; TEMP 41.6; O2SAT 96–100; BMI 35.9
--- NOTE | 2025-05-02 14:39 | ECG_ITS ---
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 Measurements Intervals [place] Rate: 101 P: 42 PA: 160 QRS: 1 QRSD: 92 T: 43 QT: 341 QTc: 443 Interpretive Statements SINUS TACHYCARDIA POSSIBLE ANTERIOR MYOCARDIAL INFARCTION , OF INDETERMINATE AGE [30 ms Q WAVE IN V3/V4, OR R < 0.2 mV IN V4] Compared to ECG 09/24/2022 04:08:57 Sinus rhythm no longer present T-wave abnormality no longer present Possible ischemia no longer present Myocardial infarct finding still present Electronically Signed On 05-02-2025 18:03:19 CDT by Raysa Boyd M.D. [email or web address]
--- NOTE | 2025-05-02 14:53 | W.ED.CHESTPA ---
HPI - Chest Pain General: Chief Complaint: Chest Pain Stated Complaint: cp, sob, back pain, L arm pain Time Seen by Provider: 05/02/25 14:44 History of Present Illness: 49-year-old female with a history of coronary artery disease status post stents, hypertension, obesity, diabetes and hyperlipidemia who presents to the emergency room with chest back and left arm pain. Says often times it happens at night when she goes to lay down. More her back that is hurting but she was concerned about her heart as well. This is not similar as to when she had to have her stents. She is still on Brilinta. She does feel a bit short of breath. She had some vomiting this morning. Related Data Home Medications ?Medication ?Instructions ?Recorded ?Confirmed aspirin 81 mg chewable tablet 81 mg PO DAILY 09/22/22 05/02/25 carvedilol 3.125 mg tablet 3.125 mg PO BID 11/28/22 05/02/25 metformin 1,000 mg tablet 1,000 mg PO ONCE 11/26/23 05/02/25 empagliflozin 25 mg tablet 25 mg PO DAILY 05/02/25 05/02/25 (Jardiance) omeprazole 40 mg capsule,delayed 40 mg PO DAILY 05/02/25 05/02/25 release semaglutide 1 mg/dose (4 mg/3 mL) 1 mg SUBCUT Q7D 05/02/25 05/02/25 subcutaneous pen injector (Ozempic) venlafaxine 75 mg capsule,extended 75 mg PO DAILY 05/02/25 05/02/25 release 24 hr Previous Rx's ?Medication ?Instructions ?Recorded rosuvastatin 20 mg tablet See Rx Instructions .Route 06/06/24 .COMPLEX #90 tabs cock up wrist splint #1 ea 10/19/24 ticagrelor 90 mg tablet (Brilinta) 90 mg PO BID #240 tabs 11/02/24 cyclobenzaprine 10 mg tablet 10 mg PO Q8H PRN muscle spasm #20 05/02/25 tabs diclofenac sodium 50 mg 50 mg PO BID PRN pain #14 tabs 05/02/25 tablet,delayed release Allergies Allergy/AdvReac Type Severity Reaction Status Date / Time No Known Allergies Allergy Verified 05/02/25 14:40 Review of Systems Narrative: Constitutional symptoms: Negative except as documented in HPI. Skin symptoms: Negative except as documented in HPI. Eye symptoms: Negative except as documented in HPI. ENMT symptoms: Negative except as documented in HPI. Respiratory symptoms: Negative except as documented in HPI. Cardiovascular symptoms: Negative except as documented in HPI. Gastrointestinal symptoms: Negative except as documented in HPI. Genitourinary symptoms: Negative except as documented in HPI. Musculoskeletal symptoms: Negative except as documented in HPI. Neurologic symptoms: Negative except as documented in HPI. Psychiatric symptoms: Negative except as documented in HPI. Endocrine symptoms: Negative except as documented in HPI. PFSH ED PFSH: Medical History (Updated 05/02/25 @ 18:29 by Julia Mathew MD) Atherosclerosis of coronary artery CLARISSE x2 to the RCA, CLARISSE x1 to the mid LAD. 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 09/24/22 History of hyperlipidemia History of essential hypertension History of type 2 diabetes mellitus Surgical History No pertinent past surgical history Family History Father CAD (coronary artery disease) Social History Smoking and tobacco/nicotine status: former use of tobacco/nicotine Quit status (tobacco/nicotine): has quit using Year quit tobacco: 2022 Former quit date comment: 09/23/22 Alcohol intake: never Substance/Drug Use: never Physical Exam Narrative: EXAM NARRATIVE: General: Alert, no acute distress. Skin: Warm, dry. Head: Normocephalic, atraumatic. Neck: Supple, trachea midline. Eye: Extraocular movements are intact. Ears, nose, mouth and throat: mucosa moist. Cardiovascular: Regular, Normal peripheral perfusion. Respiratory: Lungs are clear to auscultation, respirations are non-labored, breath sounds are equal, Symmetrical chest wall expansion. Gastrointestinal: Soft, Nontender, Non distended Musculoskeletal: Normal ROM, no deformity. Neurological: Alert and oriented, No focal neurological deficit observed. Psychiatric: Cooperative, appropriate mood & affect. Course Vital Signs: Vital signs: Vital Signs Temperature 107 F H 05/02/25 14:37 Pulse Rate 91 05/02/25 17:59 Respiratory Rate 17 05/02/25 16:27 Blood Pressure 165/111 05/02/25 17:59 Pulse Oximetry 99 05/02/25 17:59 Oxygen Delivery Me thod Room Air 05/02/25 14:37 MDM - Chest Pain Medical Decision Making Differential diagnosis for patient with chest pain includes but is not limited to and based on the above HPI, review of systems and physical exam: Pneumonia. unstable angina. angina. Acute coronary syndrome / DC. Pulmonary embolism. Costochondritis / musculoskeletal. Pleurisy. Pericarditis. Esophageal spasm. Pancreatis. Cholecystitis. Orders placed to evaluate differential diagnosis based on the above differential, HPI and physical exam EKG: Time 1435. Rate 101. Sinus tachycardia, nonspecific ST changes, no ectopy, normal SD & QRS intervals, This was reviewed and interpreted by myself the ER physician at 1440 Chest x-ray: No acute process. No infiltrate. No pneumothorax. This was reviewed and interpreted by myself the emergency room physician. I also reviewed the radiology report. Lab Review: Laboratory results were reviewed and interpreted by myself the emergency room physician. No leukocytosis. No anemia. No renal failure. proBNP is elevated over 3 years ago at over 500. Troponin initially is elevated at 60 and went down to 55. Not a significant delta but given her history and the nature of her symptoms she needs further observation and workup. I reviewed the patient's medical record. Reexamination: Patient remained stable. No increased work of breathing. No altered mental status. No focal motor deficits. Currently with minimal chest pain and back pain. I spoke with her again and her final description of her pain is that she develops pain in her mid back behind her heart that feels like a bruise she then becomes tight in her chest and then become short of breath. This happens a lot at night. She says that leaning forward in her bed while sitting sometimes helps with the pain some. It is not better or worse with actual movement. Consultation: I spoke with Dr. Joyce who is on-call for cardiology who agrees the patient needs a stress test and an echo. She recommends admission. She will see the patient in consultation. Consultation: I spoke with Dr. Ulloa who is on-call for the hospitalist service who agrees to admission to the stepdown unit. Assessment and plan: Chest pain Coronary artery disease -I discussed the patient with the hospitalist on-call who is admitting the patient. - Discussed findings and plan with patient. Answered any questions. - All laboratory values were reviewed and interpreted personally by myself, the ER physician - All imaging was reviewed and interpreted personally by myself, the ER physician. - Evaluation and treatment of this problem were appropriate in the emergency setting Lab Data 05/02/25 14:54 05/02/25 14:54 Radiology Impressions Chest X-Ray 05/02/25 15:03 IMPRESSION: 1. No acute cardiopulmonary finding. Laboratory Results WBC 8.91 10^3/uL (3.29-11.43) 05/02/25 14:54 RBC 5.02 10^6/uL (3.85-5.65) 05/02/25 14:54 Hgb 13.30 g/dL (11.27-16.99) 05/02/25 14:54 Hct 40.9 % (36-47) 05/02/25 14:54 MCV 81.5 fl (85-98) L 05/02/25 14:54 MCH 26.5 pg (27-33) L 05/02/25 14:54 MCHC 32.5 g/dL (30-55) 05/02/25 14:54 RDW 14.2 % (12.1-15.1) 05/02/25 14:54 Plt Count 337 10^3/cmm (157-399) 05/02/25 14:54 MPV 8.7 fL (7.4-10.4) 05/02/25 14:54 Neut % (Auto) 76.1 % 05/02/25 14:54 Lymph % (Auto) 13.1 % 05/02/25 14:54 [place] % (Auto) 6.8 % 05/02/25 14:54 Eos % (Auto) 3.0 % 05/02/25 14:54 Baso % (Auto) 0.7 % 05/02/25 14:54 Neut # (Auto) 6.77 10^3/uL (1.8-7.7) 05/02/25 14:54 Lymph # (Auto) 1.2 10^3/uL (0.8-4.8) 05/02/25 14:54 [place] # (Auto) 0.6 10^3/uL (0.2-0.9) 05/02/25 14:54 Eos # (Auto) 0.3 10^3/uL (0.0-0.8) 05/02/25 14:54 Baso # (Auto) 0.1 10^3/uL (0.0-0.1) 05/02/25 14:54 Nucleated RBC % (auto) 0 % 05/02/25 14:54 Nucleated RBCs # 0.0 /100WBC 05/02/25 14:54 Sodium 137 mmol/L (136-145) 05/02/25 14:54 Potassium 4.1 mmol/L (3.5-5.1) 05/02/25 14:54 Chloride 102 mmol/L (98-107) 05/02/25 14:54 Carbon Dioxide 21 mmol/L (22-29) L 05/02/25 14:54 Anion Gap 18.1 (5-19) 05/02/25 14:54 BUN 15 mg/dL (6-20) 05/02/25 14:54 Creatinine 0.5 mg/dL (0.5-0.9) 05/02/25 14:54 GFR Calculation 130.6 mL/min (90-130) H 05/02/25 14:54 Glucose 158 mg/dL (65-115) H 05/02/25 14:54 Calculated Osmolality 288 mOsm/kg (285-295) 05/02/25 14:54 Calcium 9.1 mg/dL (8.5-10.5) 05/02/25 14:54 Total Bilirubin 0.3 mg/dL (0.15-1.2) 05/02/25 14:54 AST 17 U/L (0-32) 05/02/25 14:54 ALT 32 U/L (0-33) 05/02/25 14:54 Alkaline Phosphatase 61 U/L (35-105) 05/02/25 14:54 Troponin T Baseline 60 ng/L (0-10) H 05/02/25 14:54 Troponin T 120 Minute 55.63 ng/L (0-10) H 05/02/25 16:57 Delta Troponin T -4.37 ABS# (0-10) L 05/02/25 16:57 NT-Pro-B Natriuret Pep 530 pg/mL (0-125) H 05/02/25 14:54 Total Protein 7.2 g/dL (6.6-8.7) 05/02/25 14:54 Albumin 4.4 g/dL (3.5-5.2) 05/02/25 14:54 Globulin 2.8 g/dL (1.3-4.6) 05/02/25 14:54 Lipase 25 U/L (13-60) 05/02/25 14:54 All radiology interpretation(s) finalized by discharge Discharge Plan Discharge Patient Disposition: Placed in Observation Clinical Impression: Chest pain, Coronary artery disease Discharge Diet: Usual diet Discharge Activity: Increase activity as tolerated Coding Level of Care Code ED 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
[2025-05-02 15:00] LABS: Hematocrit 40.9 % (36-47); Hemoglobin 13.30 g/dL (11.27-16.99); Mean Corpuscular HGB Conc 32.5 g/dL (30-55); Mean Corpuscular Hemoglobin 26.5 pg (27-33); Mean Corpuscular Volume 81.5 fl (85-98); Nucleated Red Blood Cells % 0 %; Platelet Count 337 10^3/cmm (157-399); Red Blood Count 5.02 10^6/uL (3.85-5.65); White Blood Count 8.91 10^3/uL (3.29-11.43)
--- NOTE | 2025-05-02 15:03 | XR_ITS ---
WS: [id number] Exam: XR chest 1V portable [id number] Date/Time of Exam: 05/02/2025 3:04 PM Reason For Exam: Chest pain Comparison 09/23/2022. Lungs are fully expanded and clear. Heart size is normal. No pleural effusions. Bony structures are intact. The mediastinum is normal in contour. XR/XR chest 1V portable [id number] IMPRESSION: 1. No acute cardiopulmonary finding.
[2025-05-02 15:21] LABS: Troponin(5th) Baseline 60 ng/L (0-10)
[2025-05-02 15:31] LABS: Lipase 25 U/L (13-60)
[2025-05-02 15:42] LABS: Alanine Aminotransferase 32 U/L (0-33); Albumin Level 4.4 g/dL (3.5-5.2); Alkaline Phosphatase 61 U/L (35-105); Anion Gap 18.1 (5-19); Aspartate Amino Transferase 17 U/L (0-32); Blood Urea Nitrogen 15 mg/dL (6-20); Calcium 9.1 mg/dL (8.5-10.5); Carbon Dioxide 21 mmol/L (22-29); Chloride 102 mmol/L (98-107); Creatinine Clr Calc Pharmacy 134.2006; Globulin 2.8 g/dL (1.3-4.6); Glucose 158 mg/dL (65-115); NT Pro B Type Natriuretic Pept 530 pg/mL (0-125); Osmolality Calculated 288 mOsm/kg (285-295); Potassium 4.1 mmol/L (3.5-5.1); Sodium 137 mmol/L (136-145); Total Protein 7.2 g/dL (6.6-8.7)
--- NOTE | 2025-05-02 16:39 | ECG_ITS ---
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 Measurements Intervals Center Rate: 96 P: 155 FL: 159 QRS: 201 QRSD: 103 T: 146 QT: 366 QTc: 464 Interpretive Statements SINUS RHYTHM ARM LEADS REVERSED [INVERTED P AND QRS IN I] Compared to ECG 05/02/2025 14:35:27 Sinus tachycardia no longer present Myocardial infarct finding no longer present Electronically Signed On 05-02-2025 18:13:26 CDT by Raysa Boyd M.D. [id number]
[2025-05-02 17:30] LABS: Troponin 5 2HR 55.63 ng/L (0-10)
[2025-05-02 17:36] LABS: Troponin 5 2HR Delta -4.37 ABS# (0-10)
--- NOTE | 2025-05-02 18:26 | USCV_ITS ---
Varun Villatoro Age: 49 Gender: F : 1975 Exam Date: 05/02/2025 18:47 Ordering Phys: Sahara Ulloa MD Technologist: JAREN Exam Location: [facility] [place] Indication: chest pain , hx CAD s/p PCI, HTN, DM2, HL BP: 165 / 111 HR: 94 Rhythm: Sinus Technical Quality: Adequate MEASUREMENTS (Male / Female) Normal Values 2D ECHO LVOT Diameter 1.9 cm LV Ejection Fraction MOD 4C 63.6 % LV Ejection Fraction MOD 2C 48.3 % LV Ejection Fraction 2C AL 49.8 % LA Diameter 2.2 cm Aorta at Sinotubular Diameter 2.5 cm IVC Diameter 0.7 cm M-MODE LA Ao Ratio MM 1.0 AV Cusp Separation MM 1.7 cm DOPPLER AV Peak Velocity 115.0 cm/s LVOT Peak Velocity 121.0 cm/s AV Area Cont Eq vti 2.6 cm squared AV Area Cont Eq pk 2.9 cm squared MV Peak Velocity 121.0 cm/s MV Area PHT 5.7 cm squared Mitral E to A Ratio 0.7 TV Peak E Velocity 59.0 cm/s PV Peak Velocity 122.0 cm/s FINDINGS Left Ventricle Normal left ventricular size. Segmental wall motion abnormality with severe hypokinesis of the mid and basal inferolateral and anterolateral wall segments. Overall, normal ejection fraction of 55%. Normal left ventricular cavity size. Normal left ventricular wall thickness. Right Ventricle Normal right ventricular size and systolic function. Right Atrium Normal right atrial size. Left Atrium Normal left atrial size. Mitral Valve No mitral valve stenosis. No mitral valve regurgitation. Aortic Valve No aortic valve stenosis. No aortic valve regurgitation. Tricuspid Valve No tricuspid valve regurgitation. Indeterminate pulmonary pressure due to inadequate TR jet to measure from. Pulmonic Valve No pulmonary valve regurgitation. Pericardium No pericardial effusion. Aorta Normal size aortic root and proximal ascending aorta. IVC Normal inferior vena cava. CONCLUSIONS 1. Segmental wall motion abnormality of the left ventricle with severe hypokinesis of the mid and basal inferolateral and anterolateral wall segments. Overall, normal ejection fraction of 55%. 2. Normal valvular function. Jt Joyce MD, FACC (Electronically Signed) Final Date: 03 May 2025 12:39 S
--- NOTE | 2025-05-02 18:31 | ECG_ITS ---
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 Interpretive Statements Procedure: A total of 0.4 mg of Lexiscan was infused over 20 seconds. The stress phase was continued for a total of 5 minutes. Sestamibi was injected 20 seconds after the Lexiscan infusion. Vital signs and ECG findings: At baseline the patient's blood pressure and heart rate were 154/92 and 90 bpm. At peak stress the patient's blood pressure was 174/96 with a heart rate of 105 bpm During recovery the patient's blood pressure was 170/101 with a heart rate of 100 bpm Resting EKG: Normal sinus rhythm with a heart rate of 90 bpm. Poor R wave progression, cannot rule out old anterior infarction EKG response to stress: No ST or T wave abnormality changes to suggest inducible ischemia. Conclusion: 1. Normal EKG response to Lexiscan infusion 2. No Lexiscan induced chest pain or cardiac arrhythmia. 3. Normal blood pressure and heart rate response. 4. Nuclear myocardial perfusion scan pending; see separate report. Electronically Signed On 05-04-2025 08:54:21 CDT by Jt Joyce M.D. [id number] [id number]
[2025-05-02 18:57] LABS: Cholesterol 123 mg/dL (0-200); HDL Cholesterol 31 mg/dL (60-100); Triglycerides 210 mg/dL (0-150); VLDL Cholestrol Calculation 42 mg/dL (0-30)
[2025-05-02] MEDS: heparin 5,000 unit/mL INJ 1 mL 5000 UNIT SUBCUT (19:25)
[2025-05-02 19:26] LABS: Estmated Average Glucose 140; Hemoglobin A1C 6.5 % (4.0-6.0)
--- NOTE | 2025-05-02 20:39 | ECG_ITS ---
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 Measurements Intervals [place] Rate: 99 P: 61 FL: 167 QRS: 12 QRSD: 100 T: 45 QT: 346 QTc: 444 Interpretive Statements SINUS RHYTHM POSSIBLE ANTERIOR MYOCARDIAL INFARCTION , OF INDETERMINATE AGE [30 ms Q WAVE IN V3/V4, OR R < 0.2 mV IN V4] Compared to ECG 05/02/2025 16:50:13 LIMB LEAD REVERSAL NO LONGER PRESENT Electronically Signed On 05-03-2025 23:20:42 CDT by Jt Joyce M.D. [id number] [id number]
--- NOTE | 2025-05-02 20:51 | PM.HP ---
Providers/Chief Complaint Admitting Physician: DR LILIAM GASTELUM-patient seen before 12 midnight Primary Care Provider: Myriam Bridges Chief Complaint: cp, sob, back pain, L arm pain History of Present Illness Varun Villatoro is a 49 year old female with medical history significant for diabetes type 2, CAD who had been status post coronary artery 3-4 stents placed 3 years ago when she was only 46 years old. At that time patient was having unstable angina and it was due to ischemia. This time patient came in because at bedtime the back will start hurting and then it was transient to the chest pain with shortness of breath. Patient relates that at certain position leaning over the pain relieves and is been going on for the longest time at least 3 years. However last night was different the pain for the first time radiating to the left upper extremity down the whole. And it was for this reason patient came into follow-through with care actually the mother compelled her to come in. First troponin had been done and it was not impressive we will follow through and trend troponin. Patient is on good medication with Brilinta 90 mg 3 times a day, baby aspirin, carvedilol 3.125 mg twice daily. Patient is n.p.o. after 12 midnight for stress test with Lexiscan. Patient has smoked in the past but stopped smoking 3 years ago when she had her coronary artery stent placed. Patient is not having chest pain coming in but is the pattern of having chest pains at bedtime at every single moments trying to go to sleep. Cardiology has been consulted and on the case echocardiogram had been done in the emergency room pending results. Review of Systems Narrative: Standard review upon 10 organ review we are entirely unremarkable patient is not having any chest pain at this time. By history patient has been having unstable angina at bedtime at home. Medications/Allergies Home Medications ?Medication ?Instructions ?Recorded ?Confirmed ?Last Taken ?Type aspirin 81 mg chewable tablet 81 mg PO DAILY 09/22/22 05/02/25 05/02/25 History carvedilol 3.125 mg tablet 3.125 mg PO BID 11/28/22 05/02/25 05/02/25 09:00 History metformin 1,000 mg tablet 1,000 mg PO ONCE 11/26/23 05/02/25 05/02/25 History rosuvastatin 20 mg tablet See Rx Instructions .Route 06/06/24 05/02/25 05/01/25 19:00 Rx .COMPLEX #90 tabs cock up wrist splint #1 ea 10/19/24 05/02/25 Unknown Rx ticagrelor 90 mg tablet (Brilinta) 90 mg PO BID #240 tabs 11/02/24 05/02/25 05/02/25 09:00 Rx cyclobenzaprine 10 mg tablet 10 mg PO Q8H PRN muscle spasm #20 05/02/25 Unknown Rx tabs diclofenac sodium 50 mg 50 mg PO BID PRN pain #14 tabs 05/02/25 Unknown Rx tablet,delayed release empagliflozin 25 mg tablet 25 mg PO DAILY 05/02/25 05/02/25 Unknown History (Jardiance) omeprazole 40 mg capsule,delayed 40 mg PO DAILY 05/02/25 05/02/25 Unknown History release semaglutide 1 mg/dose (4 mg/3 mL) 1 mg SUBCUT Q7D 05/02/25 05/02/25 05/01/25 History subcutaneous pen injector (Ozempic) venlafaxine 75 mg capsule,extended 75 mg PO DAILY 05/02/25 05/02/25 05/02/25 History release 24 hr Allergies Allergy/AdvReac Type Severity Reaction Status Date / Time No Known Allergies Allergy Verified 05/02/25 14:40 PFSH Acute PFSH: Medical History Atherosclerosis of coronary artery CLARISSE x2 to the RCA, CLARISSE x1 to the mid LAD. 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 09/24/22 History of hyperlipidemia History of essential hypertension History of type 2 diabetes mellitus Surgical History No pertinent past surgical history Family History Father CAD (coronary artery disease) Social History Smoking and tobacco/nicotine status: former use of tobacco/nicotine Quit status (tobacco/nicotine): has quit using Year quit tobacco: 2022 Former quit date comment: 09/23/22 Alcohol intake: never Substance/Drug Use: never Vitals/I&O/Wt Last Vital Signs Temp 107 F H 05/02/25 14:37 Pulse 109 H 05/02/25 20:31 Resp 16 05/02/25 20:31 BP 136/70 05/02/25 20:31 Pulse Ox 97 05/02/25 20:31 O2 Del Method Room Air 05/02/25 20:31 Weight last 48 hrs Weight 86.183 kg Physical Exam Narrative: Generally patient is doing well in no apparent distress but asking question regarding the stress test the next day. Echocardiogram done in the ED and pending result HEENT normocephalic/atraumatic neck neck is supple cardiovascular heart rate is regular lungs are pretty much clear abdomen soft nontender nondistended unremarkable extremities intact no edema has good pulses neurology there is no focality lab studies lab studies reviewed and noted. Data 05/02/25 14:54 05/02/25 14:54 A&P Assessment and plan 1. Chest pain: 2. Coronary artery disease: 3. Atherosclerosis of coronary artery: 4. Obesity: 5. History of type 2 diabetes mellitus: 6. History of essential hypertension: 7. History of hyperlipidemia: Plan: Chest pain/unstable angina - Troponin unremarkable - Continue antiplatelets with aspirin and Brilinta - Statin increased to atorvastatin 80 mg - Patient had not had chest pain since in the ED - Patient is ED hold on observation awaiting stress test and n.p.o. since midnight - Patient for stress test with Lexiscan. Coronary artery disease -Status post 2-3 coronary artery stent placement 3 years ago - Continue antianginal antiplatelets statins Obesity -Lifestyle changes for better Diabetes type 2 -Tight control very important to minimize coronary artery disease -Keep patient euglycemic PDMP PDMP Reviewed: Not Reviewed Attestations Medical Necessity Statement*: Patient with ongoing unstable angina who had had a history of chest pain with non-ST elevation OH with coronary stents placement now coming in with yet another unstable angina. Patient is of some time to follow through with stress test and after that this will determine much the duration of time most likely at this time is observation. Coding Level of Care Code 83229 Diagnoses Chest pain R07.9 Coronary artery disease I25.10 Atherosclerosis of coronary artery I25.10 Obesity E66.9 History of type 2 diabetes mellitus Z86.39 History of essential hypertension Z86.79 History of hyperlipidemia Z86.39 Time Spent (min) 60
[2025-05-02 21:05] LABS: Troponin 5 6HR 43.24 ng/L (0-10)
[2025-05-02 21:07] LABS: Troponin 5 6HR Delta -16.76 ng/L (0-12)
--- NOTE | 2025-05-02 21:56 | PC.NURSE ---
Pt is refusing gown at this time. Pt and family are mad towards nurse and dr favio escalona she is a ER hold. Pt stated she wanted to leave AMA and come back tomorrow and get the stress test through the ER. Nurse informs pt she would have to start the process all over again if she left AMA. Pts mother then states you and the doctor are stupid and ignorant.'' Dr. Watson then went in to the room and talked to pt and she calmed down. Pt then 30 min later called nurse in the room and states You should be embarrassed to work here nurse then states Im not and walks out. Nurse workforce investment act career manager Janie notified and went in the room to talk to pt.
[2025-05-03] VITALS: BP 130/68; PULSE 90; RESP 14
[2025-05-03 02:45] VITALS: BP 111/58; PULSE 90; RESP 16; O2SAT 99
[2025-05-03 05:02] VITALS: BP 143/73; PULSE 81; RESP 16; O2SAT 97
[2025-05-03 05:26] LABS: Hematocrit 39.1 % (36-47); Hemoglobin 12.50 g/dL (11.27-16.99); Mean Corpuscular HGB Conc 32.0 g/dL (30-55); Mean Corpuscular Hemoglobin 26.7 pg (27-33); Mean Corpuscular Volume 83.5 fl (85-98); Nucleated Red Blood Cells % 0 %; Platelet Count 305 10^3/cmm (157-399); Red Blood Count 4.68 10^6/uL (3.85-5.65); White Blood Count 7.72 10^3/uL (3.29-11.43)
[2025-05-03 05:50] LABS: Anion Gap 15.8 (5-19); Blood Urea Nitrogen 12 mg/dL (6-20); Calcium 8.5 mg/dL (8.5-10.5); Carbon Dioxide 23 mmol/L (22-29); Chloride 103 mmol/L (98-107); Creatinine Clr Calc Pharmacy 111.8338; Glucose 129 mg/dL (65-115); Magnesium 1.8 mg/dL (1.7-2.3); Osmolality Calculated 287 mOsm/kg (285-295); Potassium 3.8 mmol/L (3.5-5.1); Sodium 138 mmol/L (136-145)
[2025-05-03 05:51] LABS: Estmated Average Glucose 137; Hemoglobin A1C 6.4 % (4.0-6.0)
[2025-05-03 05:53] LABS: Alanine Aminotransferase 29 U/L (0-33); Albumin Level 3.9 g/dL (3.5-5.2); Alkaline Phosphatase 60 U/L (35-105); Anion Gap 15.8 (5-19); Aspartate Amino Transferase 16 U/L (0-32); Blood Urea Nitrogen 12 mg/dL (6-20); Calcium 8.6 mg/dL (8.5-10.5); Carbon Dioxide 23 mmol/L (22-29); Chloride 103 mmol/L (98-107); Cholesterol 115 mg/dL (0-200); Creatinine Clr Calc Pharmacy 134.2006; Globulin 3.3 g/dL (1.3-4.6); Glucose 127 mg/dL (65-115); HDL Cholesterol 25 mg/dL (60-100); Osmolality Calculated 287 mOsm/kg (285-295); Potassium 3.8 mmol/L (3.5-5.1); Sodium 138 mmol/L (136-145); Thyroid Stimulating Hormone 2.19 uIU/mL (0.27-4.20); Total Protein 7.2 g/dL (6.6-8.7); Triglycerides 330 mg/dL (0-150)
[2025-05-03 05:58] LABS: Slide Review Slide Review Perform
--- NOTE | 2025-05-03 07:15 | PC.NURSE ---
pt was taken for stress test @ 0700 by alma
[2025-05-03 07:55] VITALS: BP 168/99; PULSE 98
--- NOTE | 2025-05-03 11:45 | P.CONIM_ITS ---
<Statement entered by Jt Joyce MD - 05/03/25 16:38> Patient was evaluated and cared for in conjunction with an advanced practice practitioner. I personally examined the patient and reviewed the chart and all pertinent data including imaging, telemetry, and laboratory results. I discussed the patient in detail with the advanced practice practitioner. Please see their note for complete consult note, testing results and agreed upon plan of care for the patient. GENERAL: Patient is alert, awake and oriented x3. NECK: No JVD or carotid bruit HEART: Regular S1 and S2, no murmur LUNGS: Clear to auscultation bilaterally. EXTREMITIES: Lower extremities with out edema bilaterally. 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 She presented to the emergency room yesterday with complaint of new onset chest pain. She has back pain that has been bothering her for over a year, however this new pain was located in the chest with radiation down the left arm which she had not had before. She has been on Brilinta 90 mg twice a day, aspirin, carvedilol 3.125 mg twice daily, rosuvastatin 20 mg daily and Jardiance since her intervention in 2022. Troponin series: 60->55-> 43. Echocardiogram obtained yesterday shows LVEF 55%, wall motion abnormalities of the mid and basal inferolateral and anterolateral wall segments, no significant valvular abnormality. Lexiscan stress test obtained today shows ischemia in the areas where the wall motion abnormalities are located, large area of moderate ischemia mid and basal anterolateral and inferolateral wall segments. EKG yesterday showing sinus tachycardia, a possible anterior wall IN, Q wave in V3/V4. Medications/Allergies Home Medications ?Medication ?Instructions ?Recorded ?Confirmed ?Last Taken ?Type aspirin 81 mg chewable tablet 81 mg PO DAILY 09/22/22 05/02/25 05/02/25 History carvedilol 3.125 mg tablet 3.125 mg PO BID 11/28/2205/02/25 09:00 History metformin 1,000 mg tablet 1,000 mg PO ONCE 11/26/2305/02/25 History rosuvastatin 20 mg tablet See Rx Instructions .Route 0 06/06/24 05/02/25 05/01/25 19:00 Rx .COMPLEX #90 tabs cock up wrist splint #1 ea 10/19/24 05/02/25 Unkn own Rx ticagrelor 90 mg tablet (Brilinta) 90 mg PO BID #240 t abs 11/02/24 05/02/25 05/02/25 09:00 Rx cyclobenzaprine 10 mg tablet 10 mg PO Q8H PRN muscle s pasm #20 05/02/25 Unknown Rx tabs diclofenac sodium 50 mg 50 mg PO BID PRN pain #14 ta bs 05/02/25 Unknown Rx tablet,delayed release empagliflozin 25 mg tablet 25 mg PO DAILY 05/02/25 Unknown History (Jardiance) omeprazole 40 mg capsule,delayed 40 mg PO DAILY 05/02/25 Unknown History release semaglutide 1 mg/dose (4 mg/3 mL) 1 mg SUBCUT Q7D 04/0805/02/25 05/01/25 History subcutaneous pen injector (Ozempic) venlafaxine 75 mg capsule,extended 75 mg PO DAILY 04/0805/02/25 05/02/25 History release 24 hr Allergies Allergy/AdvReac Type Severity Reaction Status Date / Time No Known Allergies Allergy Verified 05/02/25 14:40 Current Medications Generic Name Dose Route Start Last Admin Trade Name Freq PRN Reason Stop Dose Admin Aspirin 81 mg 05/03/25 09:00 05/03/25 08:53 Aspirin 81 Mg Ec Tablet PO 81 mg DAILY MARK Administration Atorvastatin Calcium 80 mg 05/03/25 09:00 05/03/25 08:53 Atorvastatin 40 Mg Tablet PO 80 mg DAILY MARK Administration Carvedilol 3.125 mg 05/02/25 19:30 05/03/25 08:54 Carvedilol 3.125 Mg Tablet PO 3.125 mg BID MARK Administration Heparin Sodium (Porcine) 5,000 unit 05/02/25 19:30 05/03/25 08:55 Heparin 5,000 Unit/Ml Inj 1 Ml SUBCUT Not Given Q12H MARK Sodium Chloride 1,000 mls @ 100 mls/hr 05/02/25 22:06 05/03/25 12:56 Sodium Chloride 0.9% IV Infused .Q10H MARK Infusion Insulin Human Lispro 0 unit 05/02/25 22:06 05/03/25 13:04 Insulin Lispro 100 Unit/1 Ml SUBCUT 4 unit WM&BEDTIME MARK Administration Protocol Pantoprazole Sodium 40 mg 05/03/25 09:00 05/03/25 08:[address] 40 Mg Tablet PO Not Given DAILY MARK Senna 17.2 mg 05/02/25 22:06 05/02/25 23:21 Sennosides 8.6 Mg Tablet PO Not Given BEDTIME MARK Ticagrelor 90 mg 05/02/25 19:30 05/03/25 08:53 Ticagrelor 90 Mg Tablet PO 90 mg BID MARK Administration Venlafaxine HCl 75 mg 05/03/25 09:00 05/03/25 11:00 Venlafaxine Er (24hr) 75 Mg Capsule PO Not Given DAILY MARK PFSH Acute 2 PFSH: Medical History (Updated 05/03/25 @ 14:33 by JUDIE Kirkland) Atherosclerosis of coronary artery CLARISSE x2 to the RCA, CLARISSE x1 to the mid LAD. 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/24/22 History of hyperlipidemia History of essential hypertension History of type 2 diabetes mellitus Surgical History No pertinent past surgical history Family History Father CAD (coronary artery disease) Social History Smoking and tobacco/nicotine status: former use of tobacco/nicotine Quit status (tobacco/nicotine): has quit using Year quit tobacco: 2022 Former quit date comment: 09/23/22 Alcohol intake: never Substance/Drug Use: never Vitals/I&O/Wt Last Vital Signs Temp 107 F H 05/02/25 14:37 Pulse 93 05/03/25 12:00 Resp 16 05/03/25 12:00 BP 159/109 05/03/25 12:00 Pulse Ox 97 05/03/25 12:00 O2 Del Method Room Air 05/03/25 12:00 05/02/25 05/03/25 05/03/25 22:59 06:59 14:59 Intake Total 1360 / 1360 Balance 1360 / 1360 Weight last 48 hrs Weight 190 lb Physical Exam 2 Const: COMMON NORMALS: no acute distress and patient oriented x3 GENERAL APPEARANCE: cooperative and comfortable ORIENTATION/CONSCIOUSNESS: Yes awake, Yes oriented to person, Yes oriented to place and Yes oriented to time Chest: COMMONS NORMALS: normal inspection of the chest and normal palpation of entire chest wall CHEST: Yes Symmetrical chest wall rise Resp: COMMON NORMALS: normal respiratory effort, No retractions, No use of accessory muscles and clear to auscultation bilaterally EFFORT & INSPECTION: Yes symmetric chest movement AUSCULTATION: clear to auscultation bilaterally Cardio: COMMON NORMALS: regular rate, regular rhythm, S1 normal heart sound present, S2 normal heart sound present, No gallops present (Cardio), No clicks present (Cardio), No murmurs present (Cardio) and No rub (Cardio) RATE: r egular rate RHYTHM: regular rhythm HEART SOUNDS: S1 normal heart sound present and S2 normal heart sound present PERIPHERAL PULSES: radial pulses present Extremity: COMMON NORMALS: no pedal edema Neuro: COMMON NORMALS: patient oriented x3 and moves all extremities S ENSORIUM/ORIENTATION: Yes oriented to person, Yes oriented to place and Yes oriented to time Data 05/03/25 05:13 05/03/25 05:13 A&P Assessment and plan 1. NSTEMI (non-ST elevated myocardial infarction): 2. Atherosclerosis of coronary artery: 3. Chest pain: 4. History of hyperlipidemia: 5. History of essential hypertension: 6. History of type 2 diabetes mellitus: Plan: Chest pain pattern yesterday seems to be of a more typical nature than her usual back pain. Combined with the troponin elevation and abnormal stress test findings, recommend coronary angiogram for further evaluation. Continue aspirin, Brilinta, carvedilol, statin, Jardiance. Mud Jack Nozzleman has been out of service yesterday and today. When normal operations are resumed will plan for coronary angiogram, likely in the morning. N.p.o. after midnight tonight. Will need to uptitrate carvedilol for hypertension, blood pressures are ranging 143-168/73-111. PDMP PDMP Reviewed: Not Reviewed Coding Level of Care Code Acute Code for Chg Fwd Diagnoses NSTEMI (non-ST elevated myocardial infarction) I21.4 Atherosclerosis of coronary artery I25.10 Chest pain R07.9 History of hyperlipidemia Z86.39 History of essential hypertension Z86.79 History of type 2 diabetes mellitus Z86.39
[2025-05-03 11:47] VITALS: BP 177/98; PULSE 100; RESP 18; O2SAT 98
--- NOTE | 2025-05-03 11:55 | P.PN_ITS ---
Subjective 2 Subjective: seen this morning pt came back from stress test, awaiting stress test results. pt requested to be transferred to another hospital if there is further workup needed to which i told her we have to wait for results before deciding next course of action she denies chest pain at this time requesting to eat. i told her she can eat. Vitals/I&O/Wt Last Vital Signs Temp 107 F H 05/02/25 14:37 Pulse 100 05/03/25 11:47 Resp 18 05/03/25 11:47 BP 177/98 05/03/25 11:47 Pulse Ox 98 05/03/25 11:47 O2 Del Method Room Air 05/03/25 11:47 Weight last 48 hrs Weight 86.183 kg Physical Exam 2 Narrative: denies chest pain at this time lungs clear to auscultation abdomen soft Data 05/03/25 05:13 05/03/25 05:13 A&P Assessment and plan 1. Chest pain: 2. Coronary artery disease: 3. Atherosclerosis of coronary artery: 4. Obesity: 5. History of type 2 diabetes mellitus: 6. History of essential hypertension: 7. History of hyperlipidemia: Plan: Chest pain/unstable angina - Troponin unremarkable - Continue antiplatelets with aspirin and Brilinta - Statin increased to atorvastatin 80 mg - Patient had not had chest pain since in the ED - Patient is ED hold on observation awaiting stress test and n.p.o. since midnight - Patient for stress test with Lexiscan. Coronary artery disease -Status post 2-3 coronary artery stent placement 3 years ago - Continue antianginal antiplatelets statins Obesity -Lifestyle changes for better Diabetes type 2 -Tight control very important to minimize coronary artery disease -Keep patient euglycemic 05/02/2025 awaiting stress test results and official cardiology recommendations further management to be dictated after results. continue aspirin, brilinta venlafaxine, coreg, cardiology consulted echo pending at this time PDMP PDMP Reviewed: Not Reviewed Attestations 2 Medical Necessity Statement*: awaiting stress test results, further recommendations to be made after results made available. Diagnoses Chest pain R07.9 Coronary artery disease I25.10 Atherosclerosis of coronary artery I25.10 Obesity E66.9 History of type 2 diabetes mellitus Z86.39 History of essential hypertension Z86.79 History of hyperlipidemia Z86.39
[2025-05-03 12:00] VITALS: BP 159/109; PULSE 93; RESP 16; O2SAT 97
--- NOTE | 2025-05-03 13:00 | PC.NURSE ---
Patient at nurses station requesting to go to the cafeteria. Pt informed by Emily starks that she is not allowed to leave the unit and that a lunch tray is being brought to her. Pt upset with this answer and states, I'll just have my mother bring me something . Pt then tells Emily starks that if she does not have a tray by 1330 she is leaving AMA. 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 Upon entering room, pt sitting on bed with food tray talking on cell phone. I asked patient if she needed anything and she waves her hand at me to leave room, continuing to talk on phone.
--- NOTE | 2025-05-03 15:10 | PC.NURSE ---
Addendum entered by Lillie Barragan RN 05/03/25 15:34: Septic Technician Janie Spannann in room with patient. Pt wanting to leave and follow up with her pcp tomorrow despite knowing the risks of leaving. Dr Mathew stepped in room and informed the patient that it looks like she will need a cardiac cath. Pt stated that she is not doing that here and that she was going to [place] anyways. While pt signing AMA form and having IV cath removed , mother of patient enters room loudly complaining about the hospital. Janie informed the patients mother that she needs to leave. THe mother the Yells at Janie and refusing to leave the room and acting in an aggressive manor. @[id number] Pt left AMA with mother. Original Note: Patient on speaker phone yelling loudly with door open. This nurse stepped into the room and patient demanding her test results. Pt Stated that it is her right and she was told by a Dr that she will have these results ( stress test) by noon today. Pt told that I will talk to her when she is no longer on phone. ( pt has female yelling through phone at this time). Pt tells female to hold on and continues to leave phone on. Pt demands that the Hospitalist come and tell her the results of her test right now. Pt notified the provider is not likely to come at this minute to give her results. pt informed that she has a room on [facility]. pt stated, why am I going to a room. I want my results before I even decide if i'm going to stay. Pt again threatened to leave. pt informed that she is not being held against her will ( pt has threatened to leave AMA several times already today) PT asked if she wanted to leave or if she would like to go to her room on [facility]. Pt demands that I call the factorer right now. I informed pt that I will call the provider and let her know that she would like to speak with her. Pt still loudly talking to mother on speaker phone. Pt has removed cardiac monitoring again and is pacing the floor. Attempted to contact Dr Ulloa- Left message to return call. Called Septic Technician Janie to make her aware of situation and request assist with patient.
--- NOTE | 2025-05-03 15:35 | PM.DCS ---
Discharge Providers Date of Admission: 05/02/25 18:27 Date of Discharge: May 03, 2025 Attending Provider at Admission: Sahara Ulloa MD Attending Provider at Discharge: Sahara Ulloa MD Primary Care Provider: Myriam Bridges Diagnoses at Discharge Discharge Diagnosis 1. Chest pain: 2. Coronary artery disease: 3. Atherosclerosis of coronary artery: 4. Obesity: 5. History of type 2 diabetes mellitus: 6. History of essential hypertension: 7. History of hyperlipidemia: Reason for Visit Reason for Visit: cp, sob, back pain, L arm pain Hospital Course Hospital Course Patient presented to the hospital with chest pain however the pain resolved. She was admitted for chest pain workup. Does have a stent in place from prior x 2 in 2022. She underwent stress testing this morning and was waiting for echo and stress test results. However without waiting for results she left AMA. Nursing staff notified me that ER doctor tried to talk to her as well however patient just left. I was notified that patient left the hospital after the patient physically left the premises. I did not have a chance to go back and talk to the patient and inform her of her test results. I did not have a chance to talk to cardiology either. Patient left around 3 PM. Reviewing cardiology notes at this point indicates that stress test is positive and with her risk factors and abnormal echo and abnormal stress results coronary angiogram is recommended. I called the patient on the phone and went over all the results with her including her echocardiogram and angiogram and told her that she is at risk of arrhythmias or a heart attack leading to at this time due to her abnormal results. I read her cardiology recommendations from cardiology note. She needs to go to the nearest hospital as she will need further coronary workup with a coronary angiogram. I also informed her that our Industrial Specialist is not functional at this time and her procedure would be planned for tomorrow however she would be on the cardiac nurse in the meantime. Patient stated that she did not want to come back to [facility] and would like to go to [facility] in [place] or [facility]. I did advise her that both of those options are okay however they are quite far and if she has any symptoms or immediate chest pain she needs to go to the nearest hospital regardless of which hospital it is. I repeatedly made clear to the patient the importance of seeking medical attention immediately. Patient is very high risk at this time. Patient acknowledged and understood all of the above and stated that she will go to the hospital after talking to her family. I also told her that when she gets to the hospital of her choice she can asked them to request records from us and we can send them over the stress test and echo results and cardiology note. Patient acknowledged all of the above. She has signed out AMA. The above conversation was done on the phone. Discharge Data Studies Completed and Pending Completed Studies During Hospitalization Category Date Time Status Sestamibi Stress Test Request Stat Exams 05/02/25 18:31 Draft XR chest 1V portable [id number] Stat Exams 05/02/25 15:03 Completed NM jesús perf SPECT r/s* [id number] Routine Nuc Med 05/03/25 18:31 Completed CV. echo complete* [id number] Stat Ultrasound 05/02/25 18:26 Completed Pending at discharge Category Date Time Status Sputum Culture and Gram Stain Stat Lab 05/02/25 18:27 Uncollected Radiology Impressions Chest X-Ray 05/02/25 15:03 IMPRESSION: 1. No acute cardiopulmonary finding. Laboratory Results WBC 7.72 10^3/uL (3.29-11.43) 05/03/25 05:13 RBC 4.68 10^6/uL (3.85-5.65) 05/03/25 05:13 Hgb 12.50 g/dL (11.27-16.99) 05/03/25 05:13 Hct 39.1 % (36-47) 05/03/25 05:13 MCV 83.5 fl (85-98) L 05/03/25 05:13 MCH 26.7 pg (27-33) L 05/03/25 05:13 MCHC 32.0 g/dL (30-55) 05/03/25 05:13 RDW 14.1 % (12.1-15.1) 05/03/25 05:13 Plt Count 305 10^3/cmm (157-399) 05/03/25 05:13 MPV 8.7 fL (7.4-10.4) 05/03/25 05:13 Neut % (Auto) 54.9 % 05/03/25 05:13 Lymph % (Auto) 30.3 % 05/03/25 05:13 [place] % (Auto) 9.8 % 05/03/25 05:13 Eos % (Auto) 4.3 % 05/03/25 05:13 Baso % (Auto) 0.4 % 05/03/25 05:13 Neut # (Auto) 4.24 10^3/uL (1.8-7.7) 05/03/25 05:13 Lymph # (Auto) 2.3 10^3/uL (0.8-4.8) 05/03/25 05:13 [place] # (Auto) 0.8 10^3/uL (0.2-0.9) 05/03/25 05:13 Eos # (Auto) 0.3 10^3/uL (0.0-0.8) 05/03/25 05:13 Baso # (Auto) 0.0 10^3/uL (0.0-0.1) 05/03/25 05:13 Nucleated RBC % (auto) 0 % 05/03/25 05:13 Nucleated RBCs # 0.0 /100WBC 05/03/25 05:13 Sodium 138 mmol/L (136-145) 05/03/25 05:13 Sodium 138 mmol/L (136-145) 05/03/25 05:13 Potassium 3.8 mmol/L (3.5-5.1) 05/03/25 05:13 Potassium 3.8 mmol/L (3.5-5.1) 05/03/25 05:13 Chloride 103 mmol/L (98-107) 05/03/25 05:13 Chloride 103 mmol/L (98-107) 05/03/25 05:13 Carbon Dioxide 23 mmol/L (22-29) 05/03/25 05:13 Carbon Dioxide 23 mmol/L (22-29) 05/03/25 05:13 Anion Gap 15.8 (5-19) 05/03/25 05:13 Anion Gap 15.8 (5-19) 05/03/25 05:13 BUN 12 mg/dL (6-20) 05/03/25 05:13 BUN 12 mg/dL (6-20) 05/03/25 05:13 Creatinine 0.5 mg/dL (0.5-0.9) 05/03/25 05:13 Creatinine 0.6 mg/dL (0.5-0.9) 05/03/25 05:13 GFR Calculation 105.8 mL/min (90-130) 05/03/25 05:13 GFR Calculation 130.6 mL/min (90-130) H 05/03/25 05:13 Glucose 127 mg/dL (65-115) H 05/03/25 05:13 Glucose 129 mg/dL (65-115) H 05/03/25 05:13 POC Glucose 184 mg/dL (70-110) H 05/03/25 11:42 Estimat Average Glucose 137 05/03/25 05:13 Hemoglobin A1c 6.4 % (4.0-6.0) H 05/03/25 05:13 Calculated Osmolality 287 mOsm/kg (285-295) 05/03/25 05:13 Calculated Osmolality 287 mOsm/kg (285-295) 05/03/25 05:13 Calcium 8.5 mg/dL (8.5-10.5) 05/03/25 05:13 Calcium 8.6 mg/dL (8.5-10.5) 05/03/25 05:13 Phosphorus 3.6 mg/dL (2.5-4.5) 05/03/25 05:13 Magnesium 1.8 mg/dL (1.7-2.3) 05/03/25 05:13 Total Bilirubin 0.2 mg/dL (0.15-1.2) 05/03/25 05:13 AST 16 U/L (0-32) 05/03/25 05:13 ALT 29 U/L (0-33) 05/03/25 05:13 Alkaline Phosphatase 60 U/L (35-105) 05/03/25 05:13 Troponin T Baseline 60 ng/L (0-10) H 05/02/25 14:54 Troponin T 120 Minute 55.63 ng/L (0-10) H 05/02/25 16:57 Delta Troponin T -4.37 ABS# (0-10) L 05/02/25 16:57 Troponin T Hi Sens 6Hr 43.24 ng/L (0-10) H 05/02/25 20:40 Troponin T Hi Sens 6Hr Delta -16.76 ng/L (0-12) L 05/02/25 20:40 NT-Pro-B Natriuret Pep 530 pg/mL (0-125) H 05/02/25 14:54 Total Protein 7.2 g/dL (6.6-8.7) 05/03/25 05:13 Albumin 3.9 g/dL (3.5-5.2) 05/03/25 05:13 Globulin 3.3 g/dL (1.3-4.6) 05/03/25 05:13 Triglycerides 330 mg/dL (0-150) H 05/03/25 05:13 Cholesterol 115 mg/dL (0-200) 05/03/25 05:13 LDL Cholesterol, Calc 24 mg/dL (50-129) L 05/03/25 05:13 Total VLDL Cholesterol 42 mg/dL (0-30) H 05/02/25 14:54 HDL Cholesterol 25 mg/dL (60-100) L 05/03/25 05:13 LDL/HDL Ratio 0.96 RATIO (0.00-3.22) 05/03/25 05:13 Cholesterol/HDL Ratio 4.60 mg/dL (0.0-4.40) H 05/03/25 05:13 Lipase 25 U/L (13-60) 05/02/25 14:54 TSH 2.19 uIU/mL (0.27-4.20) 05/03/25 05:13 Vitals Last Vital Signs Temp 107 F H 05/02/25 14:37 Pulse 93 05/03/25 12:00 Resp 16 05/03/25 12:00 BP 159/109 05/03/25 12:00 Pulse Ox 97 05/03/25 12:00 O2 Del Method Room Air 05/03/25 12:00 Discharge Plan Discharge Patient Disposition: Left Against Medical Advice Condition: Stable Prescriptions: New cyclobenzaprine 10 mg tablet 10 mg PO Q8H PRN (Reason: muscle spasm) Qty: 20 0RF diclofenac sodium 50 mg tablet,delayed release (DR/EC) 50 mg PO BID PRN (Reason: pain) Qty: 14 0RF No Action carvedilol 3.125 mg tablet 3.125 mg PO BID Rx Instructions: must administer with a meal/food (DME) cock up wrist splint See Rx Instructions .Route .MEDSUPPLY Qty: 1 0RF Rx Instructions: As directed rosuvastatin 20 mg tablet See Rx Instructions .ROUTE .COMPLEX Qty: 90 3RF Dose Instruction: TAKE 1 TABLET BY MOUTH DAILY Rx Instructions: TAKE 1 TABLET BY MOUTH DAILY Brilinta 90 mg tablet 90 mg PO BID Qty: 240 3RF metformin 1,000 mg tablet 1,000 mg PO ONCE aspirin 81 mg Tablet,Chewable 81 mg PO DAILY omeprazole 40 mg capsule,delayed release(DR/EC) 40 mg PO DAILY Jardiance 25 mg tablet 25 mg PO DAILY Patient Comments: Patient states she stopped medication Ozempic 1 mg/dose (4 mg/3 mL) pen injector 1 mg SUBCUT Q7D venlafaxine 75 mg capsule,extended release 24hr 75 mg PO DAILY Referrals: Myriam Bridges, [employer] [Primary Care Provider, Nurse Practitioner] Discharge Diet: Usual diet Discharge Activity: Increase activity as tolerated Patient Instructions: Noncardiac Chest Pain (ED), Pain Management Activity Restrictions/Additional Instructions: Thank you for choosing [facility] for your healthcare needs today. You have been screened and evaluated and felt safe for discharge. Health conditions do change or evolve sometimes and as such it is important that you follow up with your Primary Doctor to be re checked, 3-5 days is a general good time frame for follow up. You are always welcome to return to the ED for re assessment if your symptoms are worsening or you have new concerns Discharge Attestations Time Spent in Discharge Care*: greater than 30 min Quality Metrics Clinical Quality Measures [ No reported AMI, CVA or VTE this stay] Coding Level of Care Code Acute Code for [facility] Fwd Diagnoses Chest pain R07.9 Coronary artery disease I25.10 Atherosclerosis of coronary artery I25.10 Obesity E66.9 History of type 2 diabetes mellitus Z86.39 History of essential hypertension Z86.79 History of hyperlipidemia Z86.39
--- NOTE | 2025-05-03 18:31 | NMCV_ITS ---
NM jesús perf SPECT r/s* [id number] Varun Villatoro Age: 49 Gender: F : 1975 Exam Date: 05/03/2025 06:32 Ordering Phys: Sahara Ulloa MD Technologist: KUNAL Ruelas Exam Location: [facility] Indications: CP STRESS TEST Please see separate stress test report in [facility] for full findings IMAGE PROTOCOL Rest/Stress 1 Lexiscan Day Radiopharmaceutical Dose (mCi) Administration Site Administered by Rest: Tc-99m 10.6 IV Tabatha George, EDI DEVELOPER Sestamibi Stress:Tc-99m 32.9 IV Tabatha Robledogle, EDI DEVELOPER Sestamibi Rest: 03-May-2025 60 Discovery 630 Stress: 03-May-2025 30 Discovery 630 0.4mg Lexiscan. Images obtained in supine and prone position. SPECT RESULTS Technical Quality: Good Raw Data Analysis: Normal Image Corrections: No attenuation or motion correction applied Summed Stress Score: 12 Summed Rest Score: 0 Summed Difference Score: 12 PERFUSION FINDINGS There is a large area of moderately reduced tracer counts in the mid and basal anterolateral and inferolateral wall segments on the stress images which significantly improves on the rest images consistent with ischemia in this area. FUNCTIONAL RESULTS (calculated via Gated SPECT) Stress Image LV EF (%): 63 Stress EDV (mL):70 TID: 1.05 Stress ESV (mL):26 FUNCTIONAL FINDINGS: Hypokinesis in the anterolateral and inferolateral wall segments with overall preserved ejection fraction of 63% IMPRESSIONS 1. Abnormal perfusion with evidence of a large area of moderate ischemia in the mid and basal anterolateral and inferolateral wall segments. 2. Regional wall motion abnormality in the inferolateral and inferolateral wall segments with overall normal ejection fraction of 63%. Jt Joyce MD, FACC (Electronically Signed) Final Date: 03 May 2025 12:23 S
== END 2025-05-03 16:17 | disposition left against medical advice (07) ==
LOC: ER 18:29 → ER IP 05-03 05:05 → CSU 05-03 15:35
PROVIDERS: Internal Medicine; Admitting Provider Internal Medicine; Emergency Provider Emergency Medicine; PCP Nurse Practitioner Family; Visit Provider Internal Medicine
DX: I25.10 Atherosclerotic heart disease of native coronary artery without angina pectoris (principal); I21.4 Non-ST elevation (NSTEMI) myocardial infarction; E66.9 Obesity, unspecified; Z68.35 Body mass index [BMI] 35.0-35.9, adult; Z79.82 Long term (current) use of aspirin; Z79.84 Long term (current) use of oral hypoglycemic drugs; K21.9 Gastro-esophageal reflux disease without esophagitis; Z53.29 Procedure and treatment not carried out because of patient's decision for other reasons; Z95.5 Presence of coronary angioplasty implant and graft; E11.9 Type 2 diabetes mellitus without complications; R00.0 Tachycardia, unspecified; Z87.891 Personal history of nicotine dependence; I10 Essential (primary) hypertension; E78.5 Hyperlipidemia, unspecified
CPT/HCPCS: 36415; 36416; 71045; 78452; 80048; 80053; 80061; 82962; 83036; 83690; 83735; 83880; 84100; 84443; 84484; 85025; 93005; 93017; 93306; 96372; 96375; 99285; A9500; G0378; J1644; J1815; J2785; J7030; J9999